=== PATIENT | male | born 1930 | race Two or more races ===

== ENCOUNTER 2018-11-03 11:14 | Inpatient (IN) | payer MEDICARE, OTHER ==
[~2018-11-03 11:14] MED LIST: CEFAZOLIN 1 GM INJ
[2018-11-03] MEDS ORDERED: PROPOFOL 200 MG INJ (12:19)
[2018-11-03] MEDS: LEVALBUTEROL (NEB) 0.63 MG/3 ML AMP HHN (13:39)
[2018-11-03 14:47] LABS: ANION GAP 8 (5-13); BLOOD UREA NITROGEN 32 mg/dl (7-20); CALCIUM 9.6 mg/dl (8.4-10.2); CARBON DIOXIDE 26 mmol/L (21-31); CHLORIDE 113 mmol/L (97-110); CREATININE 0.56 mg/dl (0.61-1.24); GLUCOSE 93 mg/dl (70-220); INR 1.04; POTASSIUM 3.5 mmol/L (3.5-5.1); PROTIME 13.7 Sec (11.9-14.9); PT RATIO 1.1; SODIUM 147 mmol/L (135-144)
[2018-11-03 15:11] LABS: ABNORMAL IP MESSAGE 1; HEMATOCRIT 22.3 % (42.0-52.0); MEAN CORPUSCULAR HEMOGLOBIN 26.5 pg (29.0-33.0); MEAN CORPUSCULAR HGB CONC 30.5 g/dl (32.0-37.0); MEAN CORPUSCULAR VOLUME 86.8 fl (82.0-101.0); MEAN PLATELET VOLUME 10.5 fl (7.4-10.4); NUCLEATED RED BLOOD CELLS% 11.3 /100WBC (0.0-0.0); PLATELET COUNT 75 10^3/UL (140-415); POSITIVE DIFF @See below; RED BLOOD COUNT 2.57 10^6/ul (4.70-6.10); RED CELL DISTRIBUTION WIDTH 18.3 % (11.5-14.5)
[2018-11-03 15:11] LABS: WHITE BLOOD COUNT 2.6 10^3/ul (4.8-10.8)
[2018-11-03 15:31] LABS: HEMOGLOBIN 6.8 g/dl (14.0-18.0)
[2018-11-03 15:32] LABS: ADD MAN DIFF? YES
[2018-11-03 16:06] LABS: ANISOCYTOSIS 2+ (0-0); BAND NEUTROPHILS #M 0.1 10^3/ul (0.0-0.6); BAND NEUTROPHILS % (M) 6 % (0-4); ERYTHROBLAST% (NRBC) (M) 6 % (0-0); HYPOCHROMASIA 3+ (0-0); LYMPHOCYTES #M 0.9 10^3/ul (0.8-2.9); LYMPHOCYTES % (M) 35 % (15-51); METAMYELOCYTES %M 2 % (0-0); MICROCYTOSIS 2+ (0-0); MONOCYTE #M 0.1 10^3/ul (0.3-0.9); MONOCYTES % (M) 6 % (0-11); MYELOCYTES % (M) 1 % (0-0); PLATELET ESTIMATE DECREASED; POIKILOCYTOSIS 1+ (0-0); POLYCHROMASIA 2+ (0-0); PROMYELOCYTES #M 0.1 10^3/ul (0-0); PROMYELOCYTES % (M) 6 % (0-0); SEG NEUT #M 1.1 10^3/ul (1.6-7.5); SEGMENTED NEUTROPHILS (M) % 44 % (39-77); SMUDGE%M 8 % (0-0)
[2018-11-03] MEDS ORDERED: PENDING SANTYL ORDER FOR WOUND CARE XX (20:00)
[2018-11-03] MEDS: DEXTROSE 5%-0.45% NACL 1,000 ML IV (20:17)
[2018-11-03] MEDS: ASCORBIC ACID 500 MG TAB GTB (22:04)
[2018-11-03] MEDS: METHENAMINE 1 GM TAB PO (22:04)
[2018-11-03] MEDS: CYANOCOBALAMIN 1000 MCG INJ IM (22:05)
[2018-11-04 08:25] LABS: WHITE BLOOD COUNT 3.1 10^3/ul (4.8-10.8)
[2018-11-04 08:25] LABS: ABNORMAL IP MESSAGE 1; HEMOGLOBIN 9.1 g/dl (14.0-18.0); MEAN CORPUSCULAR HEMOGLOBIN 28.2 pg (29.0-33.0); MEAN CORPUSCULAR HGB CONC 31.4 g/dl (32.0-37.0); MEAN CORPUSCULAR VOLUME 89.8 fl (82.0-101.0); NUCLEATED RED BLOOD CELLS% 13.6 /100WBC (0.0-0.0); PLATELET COUNT 81 10^3/UL (140-415); POSITIVE DIFF @See below; RED BLOOD COUNT 3.23 10^6/ul (4.70-6.10); RED CELL DISTRIBUTION WIDTH 17.2 % (11.5-14.5)
[2018-11-04 08:31] LABS: CREATINE KINASE 248 IU/L (23-200)
[2018-11-04 08:33] LABS: ADD MAN DIFF? YES
[2018-11-04 08:34] LABS: ALANINE AMINOTRANSFERASE 16 IU/L (13-69); ALBUMIN 2.9 g/dl (3.3-4.9); ALKALINE PHOSPHATASE 248 IU/L (42-121); ANION GAP 6 (5-13); ASPARTATE AMINO TRANSFERASE 54 IU/L (15-46); BILIRUBIN,INDIRECT 0.6 mg/dl (0-1.1); BILIRUBIN,TOTAL 0.6 mg/dl (0.2-1.3); BLOOD UREA NITROGEN 28 mg/dl (7-20); CALCIUM 9.6 mg/dl (8.4-10.2); CARBON DIOXIDE 30 mmol/L (21-31); CHLORIDE 113 mmol/L (97-110); CREATININE 0.54 mg/dl (0.61-1.24); GLUCOSE 128 mg/dl (70-220); POTASSIUM 3.8 mmol/L (3.5-5.1); SODIUM 149 mmol/L (135-144); TOTAL PROTEIN 5.8 g/dl (6.1-8.1)
[2018-11-04 08:39] LABS: CHOL/HDL RATIO 4.6 RATIO; HDL CHOLESTEROL 32 mg/dl (31-75); LDL CHOLESTEROL,CALCULATED 75 mg/dl; TRIGLYCERIDES 205 mg/dl (0-149)
[2018-11-04 08:39] LABS: CHOLESTEROL 148 mg/dl (100-200)
[2018-11-04 08:43] LABS: CK INDEX 1.5; TROPONIN-I 0.016 ng/ml (0.000-0.120)
[2018-11-04 08:49] LABS: CK-MB 3.61 ng/ml (0.0-2.4)
[2018-11-04] MEDS ORDERED: BICALUTAMIDE 50 MG TAB PO (09:00)
[2018-11-04] MEDS: ZINC SULFATE 220 MG CAP PO (09:22)
[2018-11-04] MEDS: ASCORBIC ACID 500 MG TAB GTB ×2 (09:22→20:52)
[2018-11-04] MEDS: PRENATAL VITAMIN PO (09:22)
[2018-11-04] MEDS: DUTASTERIDE 0.5 MG CAP PO (09:22)
[2018-11-04] MEDS: METHENAMINE 1 GM TAB PO ×2 (09:22→20:51)
[2018-11-04 09:40] LABS: PROSTATE SPECIFIC ANTIGEN > 1000.0 ng/ml (0.0-4.0)
[2018-11-04 13:34] LABS: CREATINE KINASE 100 IU/L (23-200)
[2018-11-04 13:47] LABS: CK INDEX 2.5; TROPONIN-I < 0.012 ng/ml (0.000-0.120)
[2018-11-04 13:53] LABS: CK-MB 2.45 ng/ml (0.0-2.4)
[2018-11-04] MEDS: ETOMIDATE 20 MG INJ (14:04)
[2018-11-04] MEDS: LIDOCAINE 2% (SDV) 5 ML INJ (14:04)
[2018-11-04] MEDS: PROPOFOL 40 ML (14:05)
[2018-11-04] MEDS: DEXTROSE 5%-0.45% NACL 1,000 ML IV ×2 (14:30→23:49)
[2018-11-04] MEDS: LIDOCAINE 1% (MPF) 5 ML VIAL (17:32)
[2018-11-04 18:24] LABS: CREATINE KINASE 107 IU/L (23-200)
[2018-11-04 18:35] LABS: CK INDEX 2.3; TROPONIN-I < 0.012 ng/ml (0.000-0.120)
[2018-11-04 18:37] LABS: CK-MB 2.41 ng/ml (0.0-2.4)
[2018-11-04 20:52] LABS: FLUID GLUCOSE 127 mg/dl; FLUID TOTAL PROTEIN 3.2 g/dl; FLUID TYPE THORACENTESIS FLUID
[2018-11-04] MEDS: METOPROLOL 25 MG TAB PO (20:52)
[2018-11-04 20:53] LABS: FLUID LD 499 U/L; FLUID TYPE THORACENTESIS FLUID
[2018-11-04 22:19] LABS: FLD MN% 93.2 %; FLD PMN% 6.8 %; FLD RBC 2000 /uL; FLD WBC 89 /cmm
[2018-11-04 22:50] LABS: FLD TYPE THORACENTHESIS
[2018-11-04 22:50] LABS: FLD CLARITY HAZY; FLD COLOR AMBER
[2018-11-05 08:29] LABS: ADD MAN DIFF? NO
[2018-11-05 08:40] LABS: WHITE BLOOD COUNT 2.9 10^3/ul (4.8-10.8)
[2018-11-05 08:41] LABS: ABNORMAL IP MESSAGE 1; EOSINOPHILS % 0.3 % (0.0-7.0); HEMATOCRIT 26.3 % (42.0-52.0); HEMOGLOBIN 8.5 g/dl (14.0-18.0); LYMPHOCYTES # 0.9 10^3/ul (0.8-2.9); LYMPHOCYTES % 29.8 % (15.0-51.0); MEAN CORPUSCULAR HEMOGLOBIN 28.3 pg (29.0-33.0); MEAN CORPUSCULAR HGB CONC 32.3 g/dl (32.0-37.0); MEAN CORPUSCULAR VOLUME 87.7 fl (82.0-101.0); MEAN PLATELET VOLUME 10.9 fl (7.4-10.4); MONOCYTE # 0.2 10^3/ul (0.3-0.9); MONOCYTES % 8.2 % (0.0-11.0); NEUTROPHIL # 1.6 10^3/ul (1.6-7.5); NEUTROPHILS % 53.2 % (39.0-77.0); NUCLEATED RED BLOOD CELLS # 0.3 10^3/ul (0.0-0.0); NUCLEATED RED BLOOD CELLS% 11.6 /100WBC (0.0-0.0); PLATELET COUNT 70 10^3/UL (140-415); POSITIVE DIFF @See below; RED CELL DISTRIBUTION WIDTH 17.4 % (11.5-14.5)
[2018-11-05 08:57] LABS: ANION GAP 4 (5-13); BLOOD UREA NITROGEN 26 mg/dl (7-20); CALCIUM 8.9 mg/dl (8.4-10.2); CARBON DIOXIDE 28 mmol/L (21-31); CHLORIDE 112 mmol/L (97-110); CREATININE 0.47 mg/dl (0.61-1.24); GLUCOSE 128 mg/dl (70-220); POTASSIUM 3.4 mmol/L (3.5-5.1); SODIUM 144 mmol/L (135-144)
[2018-11-05] MEDS: METOPROLOL 25 MG TAB PO ×2 (09:30→20:20)
[2018-11-05] MEDS: ASCORBIC ACID 500 MG TAB GTB ×2 (09:30→20:20)
[2018-11-05] MEDS: DUTASTERIDE 0.5 MG CAP PO (09:30)
[2018-11-05] MEDS: PRENATAL VITAMIN PO (09:30)
[2018-11-05] MEDS: ZINC SULFATE 220 MG CAP PO (09:30)
[2018-11-05] MEDS: METHENAMINE 1 GM TAB PO ×2 (09:30→20:20)
[2018-11-05 10:46] LABS: ANISOCYTOSIS 3+ (0-0); BAND NEUTROPHILS #M 0.2 10^3/ul (0.0-0.6); BAND NEUTROPHILS % (M) 9 % (0-4); ERYTHROBLAST% (NRBC) (M) 14 % (0-0); LYMPHOCYTES #M 1.1 10^3/ul (0.8-2.9); LYMPHOCYTES % (M) 41 % (15-51); MICROCYTOSIS 3+ (0-0); MONOCYTE #M 0.1 10^3/ul (0.3-0.9); MONOCYTES % (M) 6 % (0-11); PLATELET ESTIMATE DECREASED; POIKILOCYTOSIS 3+ (0-0); POLYCHROMASIA 3+ (0-0); PROMYELOCYTES % (M) 1 % (0-0); SEG NEUT #M 1.3 10^3/ul (1.6-7.5); SEGMENTED NEUTROPHILS (M) % 43 % (39-77); SMUDGE%M 4 % (0-0); TOXIC GRANULATION 1+ (0-0)
[2018-11-05] MEDS: POTASSIUM CHLORIDE (SR) 20 MEQ TAB PO (17:46)
[2018-11-05] MEDS: FISH OIL 1,000 MG CAP PO ×2 (17:46→20:20)
[2018-11-05] MEDS: DEXTROSE 5%-0.45% NACL 1,000 ML IV (20:16)
[2018-11-06 06:46] LABS: ABNORMAL IP MESSAGE 1; HEMATOCRIT 24.3 % (42.0-52.0); HEMOGLOBIN 7.8 g/dl (14.0-18.0); MEAN CORPUSCULAR HEMOGLOBIN 28.2 pg (29.0-33.0); MEAN CORPUSCULAR HGB CONC 32.1 g/dl (32.0-37.0); MEAN CORPUSCULAR VOLUME 87.7 fl (82.0-101.0); NUCLEATED RED BLOOD CELLS% 8.8 /100WBC (0.0-0.0); PLATELET COUNT 63 10^3/UL (140-415); POSITIVE DIFF @See below; RED BLOOD COUNT 2.77 10^6/ul (4.70-6.10); RED CELL DISTRIBUTION WIDTH 17.6 % (11.5-14.5)
[2018-11-06 06:46] LABS: WHITE BLOOD COUNT 2.6 10^3/ul (4.8-10.8)
[2018-11-06 06:56] LABS: ADD MAN DIFF? YES
[2018-11-06 07:20] LABS: ANION GAP 2 (5-13); BLOOD UREA NITROGEN 27 mg/dl (7-20); CALCIUM 8.8 mg/dl (8.4-10.2); CARBON DIOXIDE 29 mmol/L (21-31); CHLORIDE 110 mmol/L (97-110); CREATININE 0.46 mg/dl (0.61-1.24); GLUCOSE 135 mg/dl (70-220); POTASSIUM 3.8 mmol/L (3.5-5.1); SODIUM 141 mmol/L (135-144)
[2018-11-06 07:20] LABS: PHOSPHORUS 1.1 mg/dl (2.5-4.9)
[2018-11-06] MEDS: ZINC SULFATE 220 MG CAP PO (09:45)
[2018-11-06] MEDS: PRENATAL VITAMIN PO (09:45)
[2018-11-06] MEDS: METHENAMINE 1 GM TAB PO ×2 (09:46→21:12)
[2018-11-06] MEDS: ASCORBIC ACID 500 MG TAB GTB ×2 (09:46→21:11)
[2018-11-06] MEDS: DUTASTERIDE 0.5 MG CAP PO (09:46)
[2018-11-06] MEDS: METOPROLOL 25 MG TAB PO ×2 (09:46→21:00)
[2018-11-06] MEDS: FISH OIL 1,000 MG CAP PO ×2 (09:55→21:11)
[2018-11-06 10:34] LABS: ANISOCYTOSIS 2+ (0-0); BAND NEUTROPHILS #M 0.1 10^3/ul (0.0-0.6); BAND NEUTROPHILS % (M) 6 % (0-4); ERYTHROBLAST% (NRBC) (M) 6 % (0-0); GIANT THROMBO% (M) 2 % (0-0); LYMPHOCYTES #M 0.8 10^3/ul (0.8-2.9); LYMPHOCYTES % (M) 33 % (15-51); METAMYELOCYTES %M 1 % (0-0); MICROCYTOSIS 1+ (0-0); MONOCYTES % (M) 2 % (0-11); MYELOCYTES #M 0.1 10^3/ul (0.0-0.0); MYELOCYTES % (M) 5 % (0-0); PLATELET ESTIMATE DECREASED; POIKILOCYTOSIS 2+ (0-0); POLYCHROMASIA 3+ (0-0); PROMYELOCYTES % (M) 2 % (0-0); REACTIVE LYMPHOCYTES #M 0.1 10^3/ul (0.0-0.0); REACTIVE LYMPHOCYTES% (M) 4 % (0-0); SEG NEUT #M 1.2 10^3/ul (1.6-7.5); SEGMENTED NEUTROPHILS (M) % 47 % (39-77); SMUDGE%M 4 % (0-0)
[2018-11-06] MEDS: SOD CHLORIDE 0.9% 500 ML IV (10:37)
[2018-11-06 10:52] LABS: AADO2 Arterial 600.1 mmHg (7.0-24.0); Allen Test ACCEPTAB; Arterial Base Excess 0.2 mmol/L (-3.0-3); Arterial Blood Gas Oxygen Sat 78.3 mmHG (95.0-100.0); Arterial COHb 0.2 % (0.0-3.0); Arterial Fraction of Oxyhgb 77.8 % (93.0-99.0); Arterial HCO3 28.3 mmol/L (22.0-26.0); Arterial MetHb 0.4 % (0.0-1.5); Arterial pCO2 65.5 mmhg (35-45); Blood Gas IEPAP 20/8; Blood Gas PS 12; MODE MASK - BIPAP; Site Left Radial
[2018-11-06] MEDS ORDERED: NORepinephrine 8MG/250 ML (PMX 250 ML (10:59)
[2018-11-06] MEDS: NORepinephrine 8MG/250 ML (PMX 250 ML IV (11:59)
[2018-11-06] MEDS ORDERED: PIPER-TAZO 3.375 GM IV (PMX) 100 ML IVPB (12:00)
[2018-11-06] MEDS: LACTATED RINGER'S 500 ML IV ×3 (12:00→15:12)
[2018-11-06 12:18] LABS: ALANINE AMINOTRANSFERASE 14 IU/L (13-69); ALBUMIN/GLOBULIN RATIO 0.93; ALKALINE PHOSPHATASE 272 IU/L (42-121); ANION GAP 4 (5-13); ASPARTATE AMINO TRANSFERASE 57 IU/L (15-46); BILIRUBIN,INDIRECT 0.7 mg/dl (0-1.1); BILIRUBIN,TOTAL 0.7 mg/dl (0.2-1.3); BLOOD UREA NITROGEN 29 mg/dl (7-20); CALCIUM 9.3 mg/dl (8.4-10.2); CARBON DIOXIDE 27 mmol/L (21-31); CHLORIDE 110 mmol/L (97-110); CREATININE 0.48 mg/dl (0.61-1.24); GLUCOSE 146 mg/dl (70-220); POTASSIUM 4.3 mmol/L (3.5-5.1); SODIUM 141 mmol/L (135-144); TOTAL PROTEIN 6.2 g/dl (6.1-8.1)
[2018-11-06 12:29] LABS: TROPONIN-I < 0.012 ng/ml (0.000-0.120)
[2018-11-06] MEDS ORDERED: ALBUTEROL/IPRATROPIUM (NEB) 3 ML AMP HHN (13:00)
[2018-11-06] MEDS: PHENYLephrine 20MG IN 250 ML 250 ML IV (13:55)
[2018-11-06] MEDS: SOD CHLORIDE 0.9% 250 ML IV* (14:00)
[2018-11-06] MEDS: VANCOMYCIN 1 GM (PMX) 250 ML IVPB (14:00)
[2018-11-06 14:25] LABS: AADO2 Arterial 347.9 mmHg (7.0-24.0); Arterial Base Excess -2.2 mmol/L (-3.0-3); Arterial Blood Gas Oxygen Sat 78.9 mmHG (95.0-100.0); Arterial COHb 0.6 % (0.0-3.0); Arterial Fraction of Oxyhgb 78.2 % (93.0-99.0); Arterial MetHb 0.3 % (0.0-1.5); Arterial pCO2 35.7 mmhg (35-45); MODE VENT - AC; Site Right Radial
[2018-11-06] MEDS ORDERED: VANCOMYCIN IV PER PHARMACY XX (14:30)
[2018-11-06 15:09] LABS: ABNORMAL IP MESSAGE 1; HEMATOCRIT 30.9 % (42.0-52.0); HEMOGLOBIN 9.7 g/dl (14.0-18.0); MEAN CORPUSCULAR HEMOGLOBIN 27.4 pg (29.0-33.0); MEAN CORPUSCULAR HGB CONC 31.4 g/dl (32.0-37.0); MEAN CORPUSCULAR VOLUME 87.3 fl (82.0-101.0); NUCLEATED RED BLOOD CELLS% 34.1 /100WBC (0.0-0.0); POSITIVE DIFF @See below; RED BLOOD COUNT 3.54 10^6/ul (4.70-6.10); RED CELL DISTRIBUTION WIDTH 17.9 % (11.5-14.5)
[2018-11-06 15:09] LABS: WHITE BLOOD COUNT 2.7 10^3/ul (4.8-10.8)
[2018-11-06] MEDS: LACTATED RINGER'S 1,000 ML IV (15:09)
[2018-11-06 15:10] LABS: RETICULOCYTE RBC 3.47
[2018-11-06 15:10] LABS: RETICULOCYTE COUNT # 0.076 X10^6 (0.020-0.110); RETICULOCYTE COUNT % 2.2 % (0.5-1.5)
[2018-11-06] MEDS: PIPER-TAZO 3.375 GM IV (PMX) 100 ML IVPB ×2 (15:10→22:05)
[2018-11-06 15:11] LABS: PLATELET COUNT 118 10^3/UL (140-415)
[2018-11-06 15:18] LABS: ADD MAN DIFF? YES; PLATELET COUNT 118 10^3/UL (140-415)
[2018-11-06 15:32] LABS: INR 1.12; PROTIME 14.5 Sec (11.9-14.9); PT RATIO 1.1
[2018-11-06 15:33] LABS: PARTIAL THROMBOPLASTIN TIME 38.8 Sec (23.0-35.0)
[2018-11-06 15:34] LABS: THROMBIN TIME 16.6 SEC (13.8-19.1)
[2018-11-06 15:36] LABS: IRON 43 ug/dl (35-150)
[2018-11-06 15:38] LABS: LACTIC ACID 2.2 mmol/L (0.5-2.0)
[2018-11-06 15:41] LABS: % IRON SATURATION 33 % SAT (22-52); TOTAL IRON BINDING CAPACITY 132 ug/dl (241-421)
[2018-11-06 15:44] LABS: TROPONIN-I 0.017 ng/ml (0.000-0.120)
[2018-11-06 15:50] LABS: ADD UMIC YES; UR ASCORBIC ACID 40 mg/dL (NEGATIVE); UR BACTERIA MODERATE /HPF (NONE SEEN); UR BILIRUBIN (Dip) NEGATIVE (NEGATIVE); UR BLOOD (Dip) 3+ mg/dL (NEGATIVE); UR CLARITY CLOUDY (CLEAR); UR COLOR AMBER (YELLOW); UR GLUCOSE (Dip) 1+ mg/dL (NEGATIVE); UR KETONES (Dip) NEGATIVE (NEGATIVE); UR LEUKOCYTE ESTERASE (Dip) 2+ Leu/ul (NEGATIVE); UR MUCUS MODERATE /HPF (NONE SEEN); UR NITRITE (Dip) NEGATIVE (NEGATIVE); UR RBC > 182 /HPF (0-5); UR SPECIFIC GRAVITY (Dip) 1.017 (1.003-1.030); UR SQUAMOUS EPITHELIAL CELL FEW /HPF (FEW); UR TOTAL PROTEIN (Dip) 2+ mg/dl (NEGATIVE); UR TRANSITIONAL EPI CELL FEW /HPF (NONE SEEN); UR UROBILINOGEN (Dip) NEGATIVE (NEGATIVE); UR WBC > 182 /HPF (0-5)
[2018-11-06] MEDS: SODIUM PHOSPHATE 20 MEQ in SOD CHLORIDE 0.9% 250 ML IVPB (16:08)
[2018-11-06] MEDS: VANCOMYCIN 1 GM 250 ML IVPB (16:10)
[2018-11-06 16:11] LABS: D-DIMER > 10000.00 ng/ml (<460); FIBRIN SPLIT PRODUCT >10 and <40 ug/ml (<10)
[2018-11-06 16:38] LABS: ANISOCYTOSIS 1+ (0-0); BAND NEUTROPHILS #M 0.4 10^3/ul (0.0-0.6); BAND NEUTROPHILS % (M) 17 % (0-4); BASOPHIL #M 0.2 10^3/ul (0.0-0.0); BASOPHILS % (M) 11 % (0-2); BURR CELLS 1+ (0-0); ERYTHROBLAST% (NRBC) (M) 35 % (0-0); GIANT THROMBO% (M) 2 % (0-0); LYMPHOCYTES #M 0.9 10^3/ul (0.8-2.9); LYMPHOCYTES % (M) 34 % (15-51); MICROCYTOSIS 1+ (0-0); MYELOCYTES #M 0.2 10^3/ul (0.0-0.0); MYELOCYTES % (M) 9 % (0-0); OVALOCYTES 1+ (0-0); PLATELET ESTIMATE DECREASED; POIKILOCYTOSIS 2+ (0-0); POLYCHROMASIA 1+ (0-0); PROMYELOCYTES #M 0.1 10^3/ul (0-0); PROMYELOCYTES % (M) 4 % (0-0); REACTIVE LYMPHOCYTES% (M) 1 % (0-0); SEG NEUT #M 0.7 10^3/ul (1.6-7.5); SEGMENTED NEUTROPHILS (M) % 24 % (39-77); SMUDGE%M 9 % (0-0)
[2018-11-06 16:38] LABS: IMMEDIATE SPIN CROSSMATCH 1 3
[2018-11-06] MEDS: IPRATROPIUM (HFA) 12.9 GM INHALER INH ×2 (17:00→21:30)
[2018-11-06] MEDS: PHENYLephrine 40 MG in DEXTROSE 5% 246 ML IV (17:14)
[2018-11-06] MEDS: ALBUTEROL HFA 8 GM INHALER INH ×2 (17:27→21:30)
[2018-11-06 17:51] LABS: FOLATE > 20.0 ng/ml (2.8-20.0)
[2018-11-06] MEDS ORDERED: GLUCAGON 1 MG INJ IM (21:30)
[2018-11-06] MEDS ORDERED: GLUCOSE GEL 15 GRAM TUBE BUCCAL (21:30)
[2018-11-06] MEDS ORDERED: DEXTROSE 50% 50 ML SYRINGE IV ×2 (21:30)
[2018-11-06] MEDS ORDERED: GLUCOSE GEL 15 GRAM TUBE PO ×2 (21:30)
[2018-11-06] MEDS: INSULIN ASPART [NOVOLOG] 3 ML PEN SC (22:00)
[2018-11-07] MEDS: PHENYLephrine 40 MG in DEXTROSE 5% 246 ML IV ×3 (00:41→17:13)
[2018-11-07] MEDS: ALBUTEROL HFA 8 GM INHALER INH ×6 (01:38→20:21)
[2018-11-07] MEDS: IPRATROPIUM (HFA) 12.9 GM INHALER INH ×6 (01:38→20:21)
[2018-11-07] MEDS: INSULIN ASPART [NOVOLOG] 3 ML PEN SC ×6 (01:44→21:00)
[2018-11-07 04:47] LABS: AADO2 Arterial 212.2 mmHg (7.0-24.0); Allen Test ACCEPTAB; Arterial Base Excess -3.4 mmol/L (-3.0-3); Arterial Blood Gas Oxygen Sat 98.3 mmHG (95.0-100.0); Arterial COHb 0.7 % (0.0-3.0); Arterial Fraction of Oxyhgb 97.1 % (93.0-99.0); Arterial HCO3 19.1 mmol/L (22.0-26.0); Arterial MetHb 0.5 % (0.0-1.5); Arterial pCO2 28.4 mmhg (35-45); MODE VENT - AC; Site Right Radial
[2018-11-07 04:55] LABS: ABNORMAL IP MESSAGE 1; HEMATOCRIT 37.9 % (42.0-52.0); HEMOGLOBIN 12.5 g/dl (14.0-18.0); NUCLEATED RED BLOOD CELLS% 16.1 /100WBC (0.0-0.0); PLATELET COUNT 80 10^3/UL (140-415); POSITIVE DIFF @See below; RED BLOOD COUNT 4.46 10^6/ul (4.70-6.10)
[2018-11-07 05:08] LABS: ADD MAN DIFF? YES
[2018-11-07 05:11] LABS: LACTIC ACID 2.1 mmol/L (0.5-2.0)
[2018-11-07 05:22] LABS: PHOSPHORUS 2.7 mg/dl (2.5-4.9)
[2018-11-07 05:23] LABS: ANION GAP 6 (5-13); BLOOD UREA NITROGEN 35 mg/dl (7-20); CALCIUM 8.5 mg/dl (8.4-10.2); CARBON DIOXIDE 22 mmol/L (21-31); CHLORIDE 111 mmol/L (97-110); CREATININE 0.49 mg/dl (0.61-1.24); GLUCOSE 160 mg/dl (70-220); POTASSIUM 4.7 mmol/L (3.5-5.1); SODIUM 139 mmol/L (135-144)
[2018-11-07] MEDS: PIPER-TAZO 3.375 GM IV (PMX) 100 ML IVPB ×3 (05:37→21:34)
[2018-11-07] MEDS: LACTATED RINGER'S 1,000 ML IV ×2 (05:38→18:17)
[2018-11-07 07:35] LABS: ANISOCYTOSIS 1+ (0-0); BAND NEUTROPHILS #M 0.3 10^3/ul (0.0-0.6); BAND NEUTROPHILS % (M) 12 % (0-4); LYMPHOCYTES #M 0.3 10^3/ul (0.8-2.9); LYMPHOCYTES % (M) 10 % (15-51); MICROCYTOSIS 1+ (0-0); MONOCYTE #M 0.1 10^3/ul (0.3-0.9); MONOCYTES % (M) 4 % (0-11); MYELOCYTES % (M) 1 % (0-0); PLATELET ESTIMATE DECREASED; POLYCHROMASIA 3+ (0-0); SEG NEUT #M 2.2 10^3/ul (1.6-7.5); SEGMENTED NEUTROPHILS (M) % 73 % (39-77); SMUDGE%M 3 % (0-0); TOXIC GRANULATION 3+ (0-0)
[2018-11-07] MEDS: SOD CHLORIDE 0.9% 500 ML IV (07:43)
[2018-11-07] MEDS: METOPROLOL 25 MG TAB PO ×2 (08:21→21:00)
[2018-11-07] MEDS: FISH OIL 1,000 MG CAP PO ×2 (09:49→21:00)
[2018-11-07] MEDS: ASCORBIC ACID 500 MG TAB GTB ×2 (09:49→21:30)
[2018-11-07] MEDS: FINASTERIDE 5 MG TAB GTB (13:31)
[2018-11-07] MEDS: ACETAMINOPHEN 500 MG TAB PO (13:33)
[2018-11-07] MEDS: VANCOMYCIN 750 MG (PMX) 250 ML IVPB (15:00)
[2018-11-07] MEDS ORDERED: ETOMIDATE 20 MG INJ (17:00)
[2018-11-07 18:03] LABS: OCCULT BLOOD STOOL NEGATIVE (NEGATIVE)
[2018-11-07] MEDS: DIGOXIN 500 MCG INJ IV (18:07)
[2018-11-07] MEDS: METHENAMINE 1 GM TAB GTB (21:30)
[2018-11-08] MEDS: INSULIN ASPART [NOVOLOG] 3 ML PEN SC ×6 (01:00→21:00)
[2018-11-08] MEDS: IPRATROPIUM (HFA) 12.9 GM INHALER INH ×6 (01:39→21:30)
[2018-11-08] MEDS: ALBUTEROL HFA 8 GM INHALER INH ×6 (01:39→21:30)
[2018-11-08] MEDS: PHENYLephrine 40 MG in DEXTROSE 5% 246 ML IV ×2 (01:52→13:01)
[2018-11-08 05:54] LABS: WHITE BLOOD COUNT 4.4 10^3/ul (4.8-10.8)
[2018-11-08 05:55] LABS: ABNORMAL IP MESSAGE 1; HEMATOCRIT 31.6 % (42.0-52.0); HEMOGLOBIN 10.5 g/dl (14.0-18.0); MEAN CORPUSCULAR HEMOGLOBIN 27.8 pg (29.0-33.0); MEAN CORPUSCULAR HGB CONC 33.2 g/dl (32.0-37.0); MEAN CORPUSCULAR VOLUME 83.6 fl (82.0-101.0); NUCLEATED RED BLOOD CELLS% 8.2 /100WBC (0.0-0.0); PLATELET COUNT 72 10^3/UL (140-415); POSITIVE DIFF @See below; RED BLOOD COUNT 3.78 10^6/ul (4.70-6.10); RED CELL DISTRIBUTION WIDTH 17.6 % (11.5-14.5)
[2018-11-08] MEDS: PIPER-TAZO 3.375 GM IV (PMX) 100 ML IVPB ×2 (05:55→13:20)
[2018-11-08 06:09] LABS: ADD MAN DIFF? YES
[2018-11-08 06:53] LABS: ALANINE AMINOTRANSFERASE 21 IU/L (13-69); ALBUMIN 2.2 g/dl (3.3-4.9); ALBUMIN/GLOBULIN RATIO 0.81; ALKALINE PHOSPHATASE 319 IU/L (42-121); ANION GAP 7 (5-13); ASPARTATE AMINO TRANSFERASE 295 IU/L (15-46); BILIRUBIN,INDIRECT 0.6 mg/dl (0-1.1); BILIRUBIN,TOTAL 0.6 mg/dl (0.2-1.3); BLOOD UREA NITROGEN 38 mg/dl (7-20); CALCIUM 8.2 mg/dl (8.4-10.2); CARBON DIOXIDE 22 mmol/L (21-31); CHLORIDE 109 mmol/L (97-110); CREATININE 0.54 mg/dl (0.61-1.24); GLUCOSE 114 mg/dl (70-220); POTASSIUM 3.6 mmol/L (3.5-5.1); SODIUM 138 mmol/L (135-144); TOTAL PROTEIN 4.9 g/dl (6.1-8.1)
[2018-11-08 07:23] LABS: AADO2 Arterial 75.2 mmHg (7.0-24.0); Allen Test ACCEPTAB; Arterial Base Excess -2.3 mmol/L (-3.0-3); Arterial Blood Gas Oxygen Sat 97.6 mmHG (95.0-100.0); Arterial COHb 0.1 % (0.0-3.0); Arterial Fraction of Oxyhgb 97.1 % (93.0-99.0); Arterial HCO3 20.5 mmol/L (22.0-26.0); Arterial MetHb 0.4 % (0.0-1.5); Arterial pCO2 29.3 mmhg (35-45); MODE VENT - AC; Site Right Radial
[2018-11-08] MEDS: FINASTERIDE 5 MG TAB GTB (08:09)
[2018-11-08] MEDS: FISH OIL 1,000 MG CAP PO ×2 (08:09→20:58)
[2018-11-08] MEDS: ASCORBIC ACID 500 MG TAB GTB ×2 (08:09→21:09)
[2018-11-08] MEDS: METHENAMINE 1 GM TAB GTB ×2 (08:09→21:09)
[2018-11-08] MEDS: ZINC SULFATE 220 MG CAP GTB (08:09)
[2018-11-08] MEDS: METOPROLOL 25 MG TAB PO ×2 (08:10→21:00)
[2018-11-08] MEDS: PRENATAL VITAMIN GTB (08:10)
[2018-11-08 10:40] LABS: ANISOCYTOSIS 1+ (0-0); BAND NEUTROPHILS #M 1.7 10^3/ul (0.0-0.6); BAND NEUTROPHILS % (M) 40 % (0-4); BURR CELLS 3+ (0-0); ERYTHROBLAST% (NRBC) (M) 18 % (0-0); LYMPHOCYTES #M 1.1 10^3/ul (0.8-2.9); LYMPHOCYTES % (M) 27 % (15-51); METAMYELOCYTES %M 1 % (0-0); MICROCYTOSIS 1+ (0-0); MONOCYTE #M 0.3 10^3/ul (0.3-0.9); MONOCYTES % (M) 7 % (0-11); MYELOCYTES #M 0.1 10^3/ul (0.0-0.0); MYELOCYTES % (M) 4 % (0-0); OVALOCYTES 1+ (0-0); PLATELET ESTIMATE DECREASED; POIKILOCYTOSIS 3+ (0-0); POLYCHROMASIA 3+ (0-0); PROMYELOCYTES % (M) 1 % (0-0); REACTIVE LYMPHOCYTES% (M) 1 % (0-0); SEG NEUT #M 0.9 10^3/ul (1.6-7.5); SEGMENTED NEUTROPHILS (M) % 19 % (39-77); SMUDGE%M 3 % (0-0); TOXIC GRANULATION 2+ (0-0)
[2018-11-08 11:55] LABS: AADO2 Arterial 71.3 mmHg (7.0-24.0); Allen Test ACCEPTAB; Arterial Base Excess -2.7 mmol/L (-3.0-3); Arterial Blood Gas Oxygen Sat 94.7 mmHG (95.0-100.0); Arterial COHb 0.6 % (0.0-3.0); Arterial Fraction of Oxyhgb 93.8 % (93.0-99.0); Arterial HCO3 24.2 mmol/L (22.0-26.0); Arterial MetHb 0.4 % (0.0-1.5); Arterial pCO2 50.5 mmhg (35-45); Blood Gas PS 10; MODE VENT - CPAP; Site Right Radial
[2018-11-08] MEDS ORDERED: morphine 2 MG INJ IV (12:00)
[2018-11-08 12:24] LABS: PLATELET COUNT 106 10^3/UL (140-415)
[2018-11-08 12:47] LABS: INR 1.38; PROTIME 17.1 Sec (11.9-14.9); PT RATIO 1.3
[2018-11-08 12:49] LABS: PARTIAL THROMBOPLASTIN TIME 42.2 Sec (23.0-35.0)
[2018-11-08 12:51] LABS: THROMBIN TIME 17.1 SEC (13.8-19.1)
[2018-11-08] MEDS: LACTATED RINGER'S 1,000 ML IV (12:57)
[2018-11-08] MEDS: BALSAM PERU/CASTOR OIL 60 GM TUBE TOP ×2 (13:00→21:12)
[2018-11-08 13:15] LABS: D-DIMER 8503.11 ng/ml (<460)
[2018-11-08] MEDS: SOD CHLORIDE 0.9% 500 ML IV (13:20)
[2018-11-08 13:27] LABS: LACTATE DEHYDROGENASE 5980 IU/L (313-618)
[2018-11-08 13:41] LABS: FIBRIN SPLIT PRODUCT >10 and <40 ug/ml (<10)
[2018-11-08] MEDS: VANCOMYCIN 750 MG (PMX) 250 ML IVPB (14:19)
[2018-11-08] MEDS: CEFEPIME 1GM/50 ML IVPB (16:22)
[2018-11-08] MEDS: ACETAMINOPHEN 500 MG TAB PO (21:07)
[2018-11-09] MEDS: PHENYLephrine 40 MG in DEXTROSE 5% 246 ML IV (00:09)
[2018-11-09] MEDS: CEFEPIME 1GM/50 ML IVPB ×3 (00:09→20:18)
[2018-11-09] MEDS: INSULIN ASPART [NOVOLOG] 3 ML PEN SC ×6 (00:13→20:21)
[2018-11-09] MEDS: ALBUTEROL HFA 8 GM INHALER INH ×6 (01:18→21:31)
[2018-11-09] MEDS: IPRATROPIUM (HFA) 12.9 GM INHALER INH ×6 (01:18→21:31)
[2018-11-09 05:33] LABS: ABNORMAL IP MESSAGE 1; HEMATOCRIT 30.3 % (42.0-52.0); HEMOGLOBIN 10.1 g/dl (14.0-18.0); MEAN CORPUSCULAR HEMOGLOBIN 28.1 pg (29.0-33.0); MEAN CORPUSCULAR HGB CONC 33.3 g/dl (32.0-37.0); MEAN CORPUSCULAR VOLUME 84.2 fl (82.0-101.0); NUCLEATED RED BLOOD CELLS% 9.6 /100WBC (0.0-0.0); PLATELET COUNT 72 10^3/UL (140-415); POSITIVE DIFF @See below; RED CELL DISTRIBUTION WIDTH 17.5 % (11.5-14.5)
[2018-11-09 05:33] LABS: WHITE BLOOD COUNT 4.4 10^3/ul (4.8-10.8)
[2018-11-09 05:45] LABS: ADD MAN DIFF? YES
[2018-11-09 05:54] LABS: PHOSPHORUS 1.8 mg/dl (2.5-4.9)
[2018-11-09 06:11] LABS: ALANINE AMINOTRANSFERASE 23 IU/L (13-69); ALBUMIN 2.2 g/dl (3.3-4.9); ALBUMIN/GLOBULIN RATIO 0.88; ALKALINE PHOSPHATASE 406 IU/L (42-121); ANION GAP 3 (5-13); ASPARTATE AMINO TRANSFERASE 239 IU/L (15-46); BILIRUBIN,INDIRECT 0.5 mg/dl (0-1.1); BILIRUBIN,TOTAL 0.5 mg/dl (0.2-1.3); BLOOD UREA NITROGEN 39 mg/dl (7-20); CALCIUM 7.9 mg/dl (8.4-10.2); CARBON DIOXIDE 24 mmol/L (21-31); CHLORIDE 109 mmol/L (97-110); GLUCOSE 100 mg/dl (70-220); POTASSIUM 3.7 mmol/L (3.5-5.1); SODIUM 136 mmol/L (135-144); TOTAL PROTEIN 4.7 g/dl (6.1-8.1)
[2018-11-09 07:25] LABS: AADO2 Arterial 120.7 mmHg (7.0-24.0); Allen Test ACCEPTAB; Arterial Base Excess -1.9 mmol/L (-3.0-3); Arterial Blood Gas Oxygen Sat 98.4 mmHG (95.0-100.0); Arterial COHb 0.3 % (0.0-3.0); Arterial Fraction of Oxyhgb 97.7 % (93.0-99.0); Arterial HCO3 20.8 mmol/L (22.0-26.0); Arterial MetHb 0.4 % (0.0-1.5); Arterial pCO2 28.9 mmhg (35-45); MODE VENT - AC; Site Right Radial
[2018-11-09] MEDS: METOPROLOL 25 MG TAB PO ×2 (08:00→20:18)
[2018-11-09 08:36] LABS: ANISOCYTOSIS 2+ (0-0); BAND NEUTROPHILS #M 0.9 10^3/ul (0.0-0.6); BAND NEUTROPHILS % (M) 22 % (0-4); BURR CELLS 3+ (0-0); ERYTHROBLAST% (NRBC) (M) 13 % (0-0); GIANT THROMBO% (M) 2 % (0-0); LYMPHOCYTES #M 1.1 10^3/ul (0.8-2.9); LYMPHOCYTES % (M) 27 % (15-51); METAMYELOCYTES #M 0.2 10^3/ul (0.0-0.0); METAMYELOCYTES %M 6 % (0-0); MONOCYTES % (M) 2 % (0-11); MYELOCYTES % (M) 2 % (0-0); PLATELET ESTIMATE DECREASED; POIKILOCYTOSIS 3+ (0-0); POLYCHROMASIA 2+ (0-0); PROMYELOCYTES #M 0.1 10^3/ul (0-0); PROMYELOCYTES % (M) 3 % (0-0); REACTIVE LYMPHOCYTES% (M) 1 % (0-0); SEG NEUT #M 1.7 10^3/ul (1.6-7.5); SEGMENTED NEUTROPHILS (M) % 37 % (39-77); SMUDGE%M 11 % (0-0)
[2018-11-09] MEDS: METHENAMINE 1 GM TAB GTB ×2 (08:45→20:17)
[2018-11-09] MEDS: LACTATED RINGER'S 1,000 ML IV (08:45)
[2018-11-09] MEDS: FINASTERIDE 5 MG TAB GTB (08:45)
[2018-11-09] MEDS: BALSAM PERU/CASTOR OIL 60 GM TUBE TOP ×2 (08:45→20:22)
[2018-11-09] MEDS: PRENATAL VITAMIN GTB (08:45)
[2018-11-09] MEDS: FISH OIL 1,000 MG CAP PO ×2 (08:45→20:17)
[2018-11-09] MEDS: ZINC SULFATE 220 MG CAP GTB (08:45)
[2018-11-09] MEDS: ASCORBIC ACID 500 MG TAB GTB ×2 (08:45→20:17)
[2018-11-09] MEDS: ACETAMINOPHEN 1000MG/100ML IV 100 ML IVPB (09:18)
[2018-11-09 11:16] LABS: AADO2 Arterial 149.5 mmHg (7.0-24.0); Allen Test V; Arterial Base Excess -2.7 mmol/L (-3.0-3); Arterial Blood Gas Oxygen Sat 96.4 mmHG (95.0-100.0); Arterial COHb 0.3 % (0.0-3.0); Arterial Fraction of Oxyhgb 95.6 % (93.0-99.0); Arterial HCO3 22.1 mmol/L (22.0-26.0); Arterial MetHb 0.5 % (0.0-1.5); Arterial pCO2 38.2 mmhg (35-45); Blood Gas PS 10; MODE VENT - CPAP; Site Right Radial
[2018-11-09] MEDS: ALBUMIN HUMAN 25% 50 ML IV ×2 (12:31→20:18)
[2018-11-09] MEDS: ACETAMINOPHEN 1000MG/100ML IV 65 ML IVPB ×2 (15:40→21:46)
[2018-11-09] MEDS: POTASSIUM PHOSPHATE 20 MEQ in SOD CHLORIDE 0.9% 250 ML IVPB (19:03)
[2018-11-09] MEDS: SOD CHLORIDE 0.9% 500 ML IV (22:50)
[2018-11-10] MEDS: INSULIN ASPART [NOVOLOG] 3 ML PEN SC ×3 (01:00→12:00)
[2018-11-10] MEDS: ALBUTEROL HFA 8 GM INHALER INH ×6 (01:01→21:37)
[2018-11-10] MEDS: IPRATROPIUM (HFA) 12.9 GM INHALER INH ×6 (01:01→21:37)
[2018-11-10] MEDS: ACETAMINOPHEN 1000MG/100ML IV 65 ML IVPB ×2 (03:34→10:08)
[2018-11-10 05:14] LABS: WHITE BLOOD COUNT 2.7 10^3/ul (4.8-10.8)
[2018-11-10 05:14] LABS: ABNORMAL IP MESSAGE 1; HEMATOCRIT 22.8 % (42.0-52.0); HEMOGLOBIN 7.6 g/dl (14.0-18.0); MEAN CORPUSCULAR HEMOGLOBIN 28.5 pg (29.0-33.0); MEAN CORPUSCULAR HGB CONC 33.3 g/dl (32.0-37.0); MEAN CORPUSCULAR VOLUME 85.4 fl (82.0-101.0); NUCLEATED RED BLOOD CELLS% 7.3 /100WBC (0.0-0.0); POSITIVE DIFF @See below; RED BLOOD COUNT 2.67 10^6/ul (4.70-6.10); RED CELL DISTRIBUTION WIDTH 17.6 % (11.5-14.5)
[2018-11-10] MEDS: LACTATED RINGER'S 1,000 ML IV ×2 (05:23→19:54)
[2018-11-10 05:49] LABS: ALANINE AMINOTRANSFERASE 44 IU/L (13-69); ALBUMIN 2.1 g/dl (3.3-4.9); ALBUMIN/GLOBULIN RATIO 0.87; ALKALINE PHOSPHATASE 424 IU/L (42-121); ANION GAP 3 (5-13); ASPARTATE AMINO TRANSFERASE 171 IU/L (15-46); BILIRUBIN,INDIRECT 0.4 mg/dl (0-1.1); BILIRUBIN,TOTAL 0.4 mg/dl (0.2-1.3); BLOOD UREA NITROGEN 40 mg/dl (7-20); CALCIUM 7.7 mg/dl (8.4-10.2); CARBON DIOXIDE 24 mmol/L (21-31); CHLORIDE 110 mmol/L (97-110); GLUCOSE 93 mg/dl (70-220); POTASSIUM 3.8 mmol/L (3.5-5.1); SODIUM 137 mmol/L (135-144); TOTAL PROTEIN 4.5 g/dl (6.1-8.1)
[2018-11-10 05:52] LABS: PHOSPHORUS 2.1 mg/dl (2.5-4.9)
[2018-11-10 06:17] LABS: ADD MAN DIFF? YES; PLATELET COUNT 46 10^3/UL (140-415)
[2018-11-10 07:21] LABS: AADO2 Arterial 63.1 mmHg (7.0-24.0); Allen Test ACCEPTAB; Arterial Base Excess -2.5 mmol/L (-3.0-3); Arterial Blood Gas Oxygen Sat 97.8 mmHG (95.0-100.0); Arterial COHb 0.3 % (0.0-3.0); Arterial HCO3 20.6 mmol/L (22.0-26.0); Arterial MetHb 0.5 % (0.0-1.5); Arterial pCO2 29.2 mmhg (35-45); MODE VENT - AC; Site Right Radial
[2018-11-10 07:56] LABS: ANISOCYTOSIS 1+ (0-0); BAND NEUTROPHILS #M 0.4 10^3/ul (0.0-0.6); BAND NEUTROPHILS % (M) 18 % (0-4); BURR CELLS 3+ (0-0); EOSINOPHILS % (M) 3 % (0-7); ERYTHROBLAST% (NRBC) (M) 14 % (0-0); GIANT THROMBO% (M) 1 % (0-0); LYMPHOCYTES #M 0.9 10^3/ul (0.8-2.9); LYMPHOCYTES % (M) 36 % (15-51); METAMYELOCYTES %M 1 % (0-0); MICROCYTOSIS 1+ (0-0); MONOCYTES % (M) 3 % (0-11); MYELOCYTES % (M) 3 % (0-0); OVALOCYTES 2+ (0-0); PLATELET ESTIMATE SIG DECREASED; POIKILOCYTOSIS 3+ (0-0); POLYCHROMASIA 3+ (0-0); REACTIVE LYMPHOCYTES% (M) 1 % (0-0); SEGMENTED NEUTROPHILS (M) % 37 % (39-77); SMUDGE%M 3 % (0-0); SPHEROCYTES 1+ (0-0); TARGET CELLS 1+ (0-0); TOXIC GRANULATION 3+ (0-0)
[2018-11-10] MEDS: CEFEPIME 1GM/50 ML IVPB ×2 (10:07→20:15)
[2018-11-10] MEDS: ZINC SULFATE 220 MG CAP GTB (10:08)
[2018-11-10] MEDS: FISH OIL 1,000 MG CAP PO ×2 (10:08→20:14)
[2018-11-10] MEDS: ASCORBIC ACID 500 MG TAB GTB ×2 (10:09→20:15)
[2018-11-10] MEDS: METOPROLOL 25 MG TAB PO ×2 (10:09→20:15)
[2018-11-10] MEDS: FINASTERIDE 5 MG TAB GTB (10:09)
[2018-11-10] MEDS: METHENAMINE 1 GM TAB GTB ×2 (10:09→20:14)
[2018-11-10] MEDS: PRENATAL VITAMIN GTB (10:09)
[2018-11-10] MEDS: BALSAM PERU/CASTOR OIL 60 GM TUBE TOP ×2 (10:10→20:15)
[2018-11-10 10:58] LABS: AMMONIA 13 umol/l (9-30)
[2018-11-10] MEDS: ALBUMIN HUMAN 25% 100 ML IV ×2 (12:33→19:49)
[2018-11-10] MEDS: POTASSIUM PHOSPHATE 20 MEQ in SOD CHLORIDE 0.9% 250 ML IVPB (15:40)
[2018-11-10] MEDS: PHYTONADIONE 10 MG/ML INJ SC (20:14)
[2018-11-10 20:41] LABS: INR 1.17; PT RATIO 1.2
[2018-11-10 20:42] LABS: PARTIAL THROMBOPLASTIN TIME 38.7 Sec (23.0-35.0)
[2018-11-10 21:20] LABS: TYPE AND SCREEN 1
[2018-11-11 00:46] LABS: IMMEDIATE SPIN CROSSMATCH 1 2
[2018-11-11] MEDS: ALBUTEROL HFA 8 GM INHALER INH ×6 (01:39→21:43)
[2018-11-11] MEDS: IPRATROPIUM (HFA) 12.9 GM INHALER INH ×6 (01:39→21:43)
[2018-11-11] MEDS: FUROSEMIDE 20 MG INJ IV (02:06)
[2018-11-11] MEDS: ALBUMIN HUMAN 25% 100 ML IV (03:01)
[2018-11-11 05:14] LABS: ABNORMAL IP MESSAGE 1; HEMATOCRIT 19.2 % (42.0-52.0); MEAN CORPUSCULAR HEMOGLOBIN 28.9 pg (29.0-33.0); MEAN CORPUSCULAR HGB CONC 33.9 g/dl (32.0-37.0); MEAN CORPUSCULAR VOLUME 85.3 fl (82.0-101.0); MEAN PLATELET VOLUME 11.1 fl (7.4-10.4); NUCLEATED RED BLOOD CELLS% 5.7 /100WBC (0.0-0.0); PLATELET COUNT 74 10^3/UL (140-415); POSITIVE DIFF @See below; RED BLOOD COUNT 2.25 10^6/ul (4.70-6.10); RED CELL DISTRIBUTION WIDTH 17.6 % (11.5-14.5)
[2018-11-11 05:28] LABS: INR 1.18; PROTIME 15.1 Sec (11.9-14.9); PT RATIO 1.2
[2018-11-11 05:44] LABS: ADD MAN DIFF? YES; ALANINE AMINOTRANSFERASE 47 IU/L (13-69); ALBUMIN/GLOBULIN RATIO 1.36; ALKALINE PHOSPHATASE 335 IU/L (42-121); ANION GAP 7 (5-13); ASPARTATE AMINO TRANSFERASE 106 IU/L (15-46); BILIRUBIN,INDIRECT 0.8 mg/dl (0-1.1); BILIRUBIN,TOTAL 0.8 mg/dl (0.2-1.3); BLOOD UREA NITROGEN 32 mg/dl (7-20); CALCIUM 8.1 mg/dl (8.4-10.2); CARBON DIOXIDE 26 mmol/L (21-31); CHLORIDE 110 mmol/L (97-110); GLUCOSE 89 mg/dl (70-220); HEMOGLOBIN 6.5 g/dl (14.0-18.0); POTASSIUM 3.3 mmol/L (3.5-5.1); SODIUM 143 mmol/L (135-144); TOTAL PROTEIN 5.2 g/dl (6.1-8.1)
[2018-11-11 05:45] LABS: PHOSPHORUS 2.1 mg/dl (2.5-4.9)
[2018-11-11 07:16] LABS: ANISOCYTOSIS 1+ (0-0); BAND NEUTROPHILS #M 0.5 10^3/ul (0.0-0.6); BAND NEUTROPHILS % (M) 17 % (0-4); BURR CELLS 1+ (0-0); ERYTHROBLAST% (NRBC) (M) 19 % (0-0); HYPOCHROMASIA 1+ (0-0); LYMPHOCYTES #M 1.2 10^3/ul (0.8-2.9); LYMPHOCYTES % (M) 42 % (15-51); METAMYELOCYTES %M 2 % (0-0); MONOCYTES % (M) 1 % (0-11); MYELOCYTES % (M) 1 % (0-0); PLATELET ESTIMATE DECREASED; POIKILOCYTOSIS 1+ (0-0); POLYCHROMASIA 3+ (0-0); SEG NEUT #M 1.1 10^3/ul (1.6-7.5); SEGMENTED NEUTROPHILS (M) % 37 % (39-77); SMUDGE%M 10 % (0-0); SPHEROCYTES 1+ (0-0)
[2018-11-11] MEDS: LACTATED RINGER'S 1,000 ML IV ×2 (08:15→17:17)
[2018-11-11 08:31] LABS: IMMEDIATE SPIN CROSSMATCH 1
[2018-11-11] MEDS: POTASSIUM PHOSPHATE 30 MM in SOD CHLORIDE 0.9% 250 ML IVPB (11:33)
[2018-11-11] MEDS: POTASSIUM CHLORIDE 20 MEQ POWDER FOR ORAL SOLN JT (11:33)
[2018-11-11] MEDS: CEFEPIME 1GM/50 ML IVPB ×2 (11:33→21:28)
[2018-11-11] MEDS: FINASTERIDE 5 MG TAB GTB (11:34)
[2018-11-11] MEDS: ZINC SULFATE 220 MG CAP GTB (11:34)
[2018-11-11] MEDS: METOPROLOL 25 MG TAB PO ×2 (11:34→21:29)
[2018-11-11] MEDS: ASCORBIC ACID 500 MG TAB GTB ×2 (11:34→21:29)
[2018-11-11] MEDS: METHENAMINE 1 GM TAB GTB ×2 (11:34→21:28)
[2018-11-11] MEDS: BALSAM PERU/CASTOR OIL 60 GM TUBE TOP ×2 (11:35→21:29)
[2018-11-11] MEDS: PRENATAL VITAMIN GTB (11:35)
[2018-11-11] MEDS: FISH OIL 1,000 MG CAP PO ×2 (11:35→21:28)
[2018-11-11] MEDS: PHYTONADIONE 10 MG/ML INJ SC (11:35)
[2018-11-11] MEDS: LIDOCAINE 1% (MPF) 5 ML VIAL (14:34)
[2018-11-11 18:40] LABS: FLD MN% 68.3 %; FLD PMN% 31.7 %; FLD RBC 1000 /uL; FLD WBC 145 /cmm
[2018-11-11 19:29] LABS: FLUID LD 481 U/L; FLUID TOTAL PROTEIN 2.1 g/dl
[2018-11-11 19:31] LABS: FLD TYPE THORACENTHESIS
[2018-11-11 19:31] LABS: FLD CLARITY HAZY; FLD COLOR AMBER; PATH REVIEW? YES
[2018-11-12] MEDS: IPRATROPIUM (HFA) 12.9 GM INHALER INH ×5 (01:15→17:50)
[2018-11-12] MEDS: ALBUTEROL HFA 8 GM INHALER INH ×5 (01:15→17:51)
[2018-11-12 05:34] LABS: WHITE BLOOD COUNT 3.8 10^3/ul (4.8-10.8)
[2018-11-12 05:34] LABS: ABNORMAL IP MESSAGE 1; HEMATOCRIT 32.3 % (42.0-52.0); HEMOGLOBIN 10.9 g/dl (14.0-18.0); MEAN CORPUSCULAR HEMOGLOBIN 28.5 pg (29.0-33.0); MEAN CORPUSCULAR HGB CONC 33.7 g/dl (32.0-37.0); MEAN CORPUSCULAR VOLUME 84.3 fl (82.0-101.0); MEAN PLATELET VOLUME 11.5 fl (7.4-10.4); NUCLEATED RED BLOOD CELLS% 5.2 /100WBC (0.0-0.0); PLATELET COUNT 77 10^3/UL (140-415); POSITIVE DIFF @See below; RED BLOOD COUNT 3.83 10^6/ul (4.70-6.10); RED CELL DISTRIBUTION WIDTH 16.3 % (11.5-14.5)
[2018-11-12 05:45] LABS: ADD MAN DIFF? YES
[2018-11-12 06:11] LABS: ALANINE AMINOTRANSFERASE 57 IU/L (13-69); ALBUMIN 2.5 g/dl (3.3-4.9); ALBUMIN/GLOBULIN RATIO 1.13; ALKALINE PHOSPHATASE 430 IU/L (42-121); ANION GAP 4 (5-13); ASPARTATE AMINO TRANSFERASE 101 IU/L (15-46); BILIRUBIN,INDIRECT 0.6 mg/dl (0-1.1); BILIRUBIN,TOTAL 0.6 mg/dl (0.2-1.3); BLOOD UREA NITROGEN 28 mg/dl (7-20); CALCIUM 7.8 mg/dl (8.4-10.2); CARBON DIOXIDE 26 mmol/L (21-31); CHLORIDE 111 mmol/L (97-110); GLUCOSE 134 mg/dl (70-220); POTASSIUM 4.1 mmol/L (3.5-5.1); SODIUM 141 mmol/L (135-144); TOTAL PROTEIN 4.7 g/dl (6.1-8.1)
[2018-11-12 09:46] LABS: ANISOCYTOSIS 1+ (0-0); BAND NEUTROPHILS #M 0.1 10^3/ul (0.0-0.6); BAND NEUTROPHILS % (M) 4 % (0-4); BURR CELLS 1+ (0-0); ERYTHROBLAST% (NRBC) (M) 9 % (0-0); GIANT THROMBO% (M) 5 % (0-0); HYPOCHROMASIA 1+ (0-0); LYMPHOCYTES #M 0.6 10^3/ul (0.8-2.9); LYMPHOCYTES % (M) 16 % (15-51); METAMYELOCYTES %M 2 % (0-0); MICROCYTOSIS 1+ (0-0); MONOCYTE #M 0.1 10^3/ul (0.3-0.9); MONOCYTES % (M) 4 % (0-11); MYELOCYTES #M 0.3 10^3/ul (0.0-0.0); MYELOCYTES % (M) 9 % (0-0); PLASMAC%(M) 1 % (0); PLATELET ESTIMATE DECREASED; POIKILOCYTOSIS 1+ (0-0); POLYCHROMASIA 1+ (0-0); PROMYELOCYTES % (M) 1 % (0-0); REACTIVE LYMPHOCYTES% (M) 1 % (0-0); SEG NEUT #M 2.4 10^3/ul (1.6-7.5); SEGMENTED NEUTROPHILS (M) % 62 % (39-77); SMUDGE%M 11 % (0-0); TOXIC GRANULATION 2+ (0-0)
[2018-11-12] MEDS: METHENAMINE 1 GM TAB GTB ×2 (10:29→21:26)
[2018-11-12] MEDS: FINASTERIDE 5 MG TAB GTB (10:29)
[2018-11-12] MEDS: CEFEPIME 1GM/50 ML IVPB ×2 (10:29→21:30)
[2018-11-12] MEDS: ZINC SULFATE 220 MG CAP GTB (10:29)
[2018-11-12] MEDS: PRENATAL VITAMIN GTB (10:30)
[2018-11-12] MEDS: ASCORBIC ACID 500 MG TAB GTB ×2 (10:30→21:27)
[2018-11-12] MEDS: FISH OIL 1,000 MG CAP PO ×2 (10:30→21:26)
[2018-11-12] MEDS: BALSAM PERU/CASTOR OIL 60 GM TUBE TOP ×2 (10:31→21:30)
[2018-11-12] MEDS: METOPROLOL 25 MG TAB PO ×2 (10:31→21:29)
[2018-11-12 12:41] LABS: OCCULT BLOOD STOOL POSITIVE (NEGATIVE)
[2018-11-12] MEDS: LACTATED RINGER'S 1,000 ML IV (13:15)
[2018-11-12] MEDS: PANTOPRAZOLE 40 MG INJ IV (15:23)
[2018-11-12] MEDS: ACETAMINOPHEN 1000MG/100ML IV 100 ML IVPB (15:24)
[2018-11-13] MEDS: LACTATED RINGER'S 1,000 ML IV ×2 (04:59→20:30)
[2018-11-13] MEDS: PANTOPRAZOLE 40 MG INJ IV (05:00)
[2018-11-13 05:15] LABS: AADO2 Arterial 60.3 mmHg (7.0-24.0); Allen Test ACCEPTAB; Arterial Base Excess 0 mmol/L (-3.0-3); Arterial Blood Gas Oxygen Sat 97.8 mmHG (95.0-100.0); Arterial COHb 0.3 % (0.0-3.0); Arterial Fraction of Oxyhgb 97.2 % (93.0-99.0); Arterial HCO3 22.6 mmol/L (22.0-26.0); Arterial MetHb 0.3 % (0.0-1.5); Arterial pCO2 30.3 mmhg (35-45); MODE NASAL CANNULA; Site Right Radial
[2018-11-13 05:41] LABS: ABNORMAL IP MESSAGE 1; ADD MAN DIFF? NO; BASOPHIL # 0.1 10^3/ul (0.0-0.1); BASOPHILS % 1.9 % (0.0-2.0); EOSINOPHILS % 0.7 % (0.0-7.0); HEMATOCRIT 30.3 % (42.0-52.0); HEMOGLOBIN 10.2 g/dl (14.0-18.0); LYMPHOCYTES # 0.6 10^3/ul (0.8-2.9); LYMPHOCYTES % 13.1 % (15.0-51.0); MEAN CORPUSCULAR HEMOGLOBIN 28.7 pg (29.0-33.0); MEAN CORPUSCULAR HGB CONC 33.7 g/dl (32.0-37.0); MEAN CORPUSCULAR VOLUME 85.1 fl (82.0-101.0); MEAN PLATELET VOLUME 11.6 fl (7.4-10.4); MONOCYTE # 0.2 10^3/ul (0.3-0.9); MONOCYTES % 3.8 % (0.0-11.0); NEUTROPHIL # 2.6 10^3/ul (1.6-7.5); NEUTROPHILS % 61.6 % (39.0-77.0); NUCLEATED RED BLOOD CELLS # 0.2 10^3/ul (0.0-0.0); NUCLEATED RED BLOOD CELLS% 3.6 /100WBC (0.0-0.0); PLATELET COUNT 78 10^3/UL (140-415); POSITIVE DIFF @See below; RED BLOOD COUNT 3.56 10^6/ul (4.70-6.10); RED CELL DISTRIBUTION WIDTH 17.2 % (11.5-14.5)
[2018-11-13 05:41] LABS: WHITE BLOOD COUNT 4.2 10^3/ul (4.8-10.8)
[2018-11-13 06:12] LABS: ALANINE AMINOTRANSFERASE 45 IU/L (13-69); ALBUMIN 2.2 g/dl (3.3-4.9); ALBUMIN/GLOBULIN RATIO 0.95; ALKALINE PHOSPHATASE 386 IU/L (42-121); ANION GAP 2 (5-13); ASPARTATE AMINO TRANSFERASE 64 IU/L (15-46); BILIRUBIN,INDIRECT 0.5 mg/dl (0-1.1); BILIRUBIN,TOTAL 0.5 mg/dl (0.2-1.3); BLOOD UREA NITROGEN 24 mg/dl (7-20); CALCIUM 8.3 mg/dl (8.4-10.2); CARBON DIOXIDE 27 mmol/L (21-31); CHLORIDE 111 mmol/L (97-110); GLUCOSE 128 mg/dl (70-220); POTASSIUM 3.8 mmol/L (3.5-5.1); SODIUM 140 mmol/L (135-144); TOTAL PROTEIN 4.5 g/dl (6.1-8.1)
[2018-11-13 07:25] LABS: ANISOCYTOSIS 1+ (0-0); BAND NEUTROPHILS #M 0.3 10^3/ul (0.0-0.6); BAND NEUTROPHILS % (M) 9 % (0-4); BURR CELLS 2+ (0-0); ERYTHROBLAST% (NRBC) (M) 6 % (0-0); GIANT THROMBO% (M) 4 % (0-0); LYMPHOCYTES #M 0.5 10^3/ul (0.8-2.9); LYMPHOCYTES % (M) 14 % (15-51); METAMYELOCYTES #M 0.1 10^3/ul (0.0-0.0); METAMYELOCYTES %M 4 % (0-0); MYELOCYTES % (M) 1 % (0-0); OVALOCYTES 1+ (0-0); PLASMAC%(M) 1 % (0); POIKILOCYTOSIS 2+ (0-0); POLYCHROMASIA 1+ (0-0); PROMYELOCYTES #M 0.1 10^3/ul (0-0); PROMYELOCYTES % (M) 3 % (0-0); SEG NEUT #M 2.9 10^3/ul (1.6-7.5); SEGMENTED NEUTROPHILS (M) % 68 % (39-77); SMUDGE%M 9 % (0-0); TOXIC GRANULATION 2+ (0-0)
[2018-11-13 07:39] LABS: PLATELET ESTIMATE DECREASED
[2018-11-13] MEDS: ASCORBIC ACID 500 MG TAB GTB ×2 (09:13→20:28)
[2018-11-13] MEDS: CEFEPIME 1GM/50 ML IVPB (09:13)
[2018-11-13] MEDS: FISH OIL 1,000 MG CAP PO ×2 (09:13→20:29)
[2018-11-13] MEDS: METOPROLOL 25 MG TAB PO ×2 (09:14→20:29)
[2018-11-13] MEDS: ZINC SULFATE 220 MG CAP GTB (09:14)
[2018-11-13] MEDS: PRENATAL VITAMIN GTB (09:14)
[2018-11-13] MEDS: FINASTERIDE 5 MG TAB GTB (09:15)
[2018-11-13] MEDS: BALSAM PERU/CASTOR OIL 60 GM TUBE TOP ×2 (09:15→20:29)
[2018-11-13] MEDS: METHENAMINE 1 GM TAB GTB ×2 (09:15→20:27)
[2018-11-13] MEDS: CYANOCOBALAMIN 1000 MCG INJ IM (15:38)
[2018-11-13] MEDS: CIPROFLOXACIN 500 MG TAB JT (20:28)
[2018-11-13] MEDS: ALBUTEROL 0.083% (NEB) 2.5 MG/3 ML AMP HHN (21:34)
[2018-11-13] MEDS: ACETYLCYSTEINE 20% 4 ML VIAL NEB (21:34)
[2018-11-13 22:06] LABS: AADO2 Arterial 69.6 mmHg (7.0-24.0); Arterial Base Excess 0.9 mmol/L (-3.0-3); Arterial Blood Gas Oxygen Sat 96.5 mmHG (95.0-100.0); Arterial COHb 0.6 % (0.0-3.0); Arterial Fraction of Oxyhgb 95.5 % (93.0-99.0); Arterial HCO3 24.6 mmol/L (22.0-26.0); Arterial MetHb 0.4 % (0.0-1.5); Arterial pCO2 35.9 mmhg (35-45); MODE NASAL CANNULA; Site Left Radial
[2018-11-14] MEDS: RACEPINEPHRINE 2.25%(NEB) 0.5 ML AMP HHN (00:34)
[2018-11-14] MEDS: ALBUTEROL 0.083% (NEB) 2.5 MG/3 ML AMP HHN ×8 (00:36→23:14)
[2018-11-14] MEDS: ACETYLCYSTEINE 20% 4 ML VIAL NEB ×8 (00:36→23:14)
[2018-11-14 01:10] LABS: AADO2 Arterial 426.7 mmHg (7.0-24.0); Allen Test ACCEPTAB; Arterial Base Excess -0.5 mmol/L (-3.0-3); Arterial Blood Gas Oxygen Sat 99.2 mmHG (95.0-100.0); Arterial COHb 0.3 % (0.0-3.0); Arterial Fraction of Oxyhgb 98.5 % (93.0-99.0); Arterial HCO3 24.6 mmol/L (22.0-26.0); Arterial MetHb 0.4 % (0.0-1.5); Arterial pCO2 42.2 mmhg (35-45); Blood Gas IEPAP 15/5; MODE MASK - BIPAP; Site Left Radial
[2018-11-14] MEDS ORDERED: ACETYLCYSTEINE 20% 4 ML VIAL NEB (05:00)
[2018-11-14 05:15] LABS: AADO2 Arterial 250.7 mmHg (7.0-24.0); Allen Test ACCEPTAB; Arterial Base Excess 1.6 mmol/L (-3.0-3); Arterial Blood Gas Oxygen Sat 99.6 mmHG (95.0-100.0); Arterial COHb 0.4 % (0.0-3.0); Arterial Fraction of Oxyhgb 98.6 % (93.0-99.0); Arterial HCO3 25.6 mmol/L (22.0-26.0); Arterial MetHb 0.6 % (0.0-1.5); Arterial pCO2 38.2 mmhg (35-45); Blood Gas IEPAP 15/5; Blood Gas PS 10; MODE MASK - BIPAP; Site Left Radial
[2018-11-14 05:25] LABS: ABNORMAL IP MESSAGE 1; HEMATOCRIT 32.7 % (42.0-52.0); HEMOGLOBIN 10.9 g/dl (14.0-18.0); MEAN CORPUSCULAR HEMOGLOBIN 28.8 pg (29.0-33.0); MEAN CORPUSCULAR HGB CONC 33.3 g/dl (32.0-37.0); MEAN CORPUSCULAR VOLUME 86.3 fl (82.0-101.0); MEAN PLATELET VOLUME 12.8 fl (7.4-10.4); NUCLEATED RED BLOOD CELLS% 2.8 /100WBC (0.0-0.0); PLATELET COUNT 106 10^3/UL (140-415); POSITIVE DIFF @See below; RED BLOOD COUNT 3.79 10^6/ul (4.70-6.10); RED CELL DISTRIBUTION WIDTH 17.3 % (11.5-14.5)
[2018-11-14 05:25] LABS: WHITE BLOOD COUNT 6.7 10^3/ul (4.8-10.8)
[2018-11-14 05:42] LABS: ADD MAN DIFF? YES
[2018-11-14] MEDS: PANTOPRAZOLE 40 MG INJ IV (05:42)
[2018-11-14] MEDS: CIPROFLOXACIN 500 MG TAB JT ×2 (05:42→18:47)
[2018-11-14 06:04] LABS: LACTIC ACID 1.3 mmol/L (0.5-2.0)
[2018-11-14 06:36] LABS: ALANINE AMINOTRANSFERASE 40 IU/L (13-69); ALBUMIN 2.1 g/dl (3.3-4.9); ALBUMIN/GLOBULIN RATIO 0.91; ALKALINE PHOSPHATASE 420 IU/L (42-121); ANION GAP 4 (5-13); ASPARTATE AMINO TRANSFERASE 54 IU/L (15-46); BILIRUBIN,INDIRECT 0.4 mg/dl (0-1.1); BILIRUBIN,TOTAL 0.4 mg/dl (0.2-1.3); BLOOD UREA NITROGEN 24 mg/dl (7-20); CALCIUM 8.4 mg/dl (8.4-10.2); CARBON DIOXIDE 26 mmol/L (21-31); CHLORIDE 110 mmol/L (97-110); CREATININE 0.25 mg/dl (0.61-1.24); GLUCOSE 160 mg/dl (70-220); POTASSIUM 3.8 mmol/L (3.5-5.1); SODIUM 140 mmol/L (135-144); TOTAL PROTEIN 4.4 g/dl (6.1-8.1)
[2018-11-14] MEDS: FISH OIL 1,000 MG CAP PO ×2 (09:07→20:58)
[2018-11-14] MEDS: METHENAMINE 1 GM TAB GTB ×2 (09:07→21:16)
[2018-11-14] MEDS: FINASTERIDE 5 MG TAB GTB (09:07)
[2018-11-14] MEDS: PRENATAL VITAMIN GTB (09:08)
[2018-11-14] MEDS: METOPROLOL 25 MG TAB PO (09:08)
[2018-11-14] MEDS: BALSAM PERU/CASTOR OIL 60 GM TUBE TOP ×2 (09:08→21:17)
[2018-11-14] MEDS: ZINC SULFATE 220 MG CAP GTB (09:08)
[2018-11-14] MEDS: ASCORBIC ACID 500 MG TAB GTB ×2 (09:09→21:16)
[2018-11-14 10:02] LABS: ANISOCYTOSIS 1+ (0-0); BAND NEUTROPHILS #M 0.6 10^3/ul (0.0-0.6); BAND NEUTROPHILS % (M) 9 % (0-4); ERYTHROBLAST% (NRBC) (M) 5 % (0-0); GIANT THROMBO% (M) 3 % (0-0); LYMPHOCYTES #M 0.4 10^3/ul (0.8-2.9); LYMPHOCYTES % (M) 7 % (15-51); METAMYELOCYTES #M 0.2 10^3/ul (0.0-0.0); METAMYELOCYTES %M 3 % (0-0); MONOCYTES % (M) 1 % (0-11); MYELOCYTES #M 0.4 10^3/ul (0.0-0.0); MYELOCYTES % (M) 6 % (0-0); PLATELET ESTIMATE DECREASED; POLYCHROMASIA 1+ (0-0); PROMYELOCYTES #M 0.1 10^3/ul (0-0); PROMYELOCYTES % (M) 2 % (0-0); REACTIVE LYMPHOCYTES #M 0.1 10^3/ul (0.0-0.0); REACTIVE LYMPHOCYTES% (M) 2 % (0-0); SEG NEUT #M 4.7 10^3/ul (1.6-7.5); SEGMENTED NEUTROPHILS (M) % 70 % (39-77); SMUDGE%M 24 % (0-0)
[2018-11-14] MEDS: LIDOCAINE 1% (MPF) 5 ML VIAL (16:54)
[2018-11-14] MEDS: METOPROLOL 25 MG TAB JT (21:16)
[2018-11-15] MEDS: ARTIFICIAL TEARS 15 ML OPH BOTH EYES ×4 (00:09→21:15)
[2018-11-15] MEDS: LEVALBUTEROL (NEB) 0.63 MG/3 ML AMP HHN ×4 (01:41→20:11)
[2018-11-15] MEDS: ACETYLCYSTEINE 20% 4 ML VIAL NEB ×4 (04:11→20:11)
[2018-11-15] MEDS: PANTOPRAZOLE 40 MG INJ IV (05:56)
[2018-11-15] MEDS: CIPROFLOXACIN 500 MG TAB JT (05:56)
[2018-11-15 07:35] LABS: Allen Test ACCEPTAB; Arterial Base Excess 0.1 mmol/L (-3.0-3); Arterial Blood Gas Oxygen Sat 98.5 mmHG (95.0-100.0); Arterial COHb 0.1 % (0.0-3.0); Arterial HCO3 22.4 mmol/L (22.0-26.0); Arterial MetHb 0.4 % (0.0-1.5); Arterial pCO2 28.6 mmhg (35-45); Blood Gas IEPAP 15/5; Blood Gas PS 10; MODE MASK - BIPAP; Site Right Radial
[2018-11-15] MEDS: FISH OIL 1,000 MG CAP PO ×2 (08:40→21:15)
[2018-11-15] MEDS: ASCORBIC ACID 500 MG TAB GTB ×2 (08:40→21:15)
[2018-11-15] MEDS: ZINC SULFATE 220 MG CAP GTB (08:40)
[2018-11-15] MEDS: METHENAMINE 1 GM TAB GTB ×2 (08:40→21:15)
[2018-11-15] MEDS: FINASTERIDE 5 MG TAB GTB (08:40)
[2018-11-15] MEDS: PRENATAL VITAMIN GTB (08:41)
[2018-11-15] MEDS: METOPROLOL 25 MG TAB JT ×2 (08:41→21:17)
[2018-11-15] MEDS: BALSAM PERU/CASTOR OIL 60 GM TUBE TOP ×2 (08:42→21:17)
[2018-11-16] MEDS: LEVALBUTEROL (NEB) 0.63 MG/3 ML AMP HHN ×4 (02:32→20:01)
[2018-11-16] MEDS: ACETYLCYSTEINE 20% 4 ML VIAL NEB ×4 (02:32→20:01)
[2018-11-16] MEDS: ACETAMINOPHEN 500 MG TAB PO (03:09)
[2018-11-16 05:43] LABS: ADD MAN DIFF? NO
[2018-11-16 05:49] LABS: WHITE BLOOD COUNT 6.3 10^3/ul (4.8-10.8)
[2018-11-16 05:49] LABS: ABNORMAL IP MESSAGE 1; BASOPHIL # 0.1 10^3/ul (0.0-0.1); BASOPHILS % 1.3 % (0.0-2.0); EOSINOPHILS % 0.5 % (0.0-7.0); HEMOGLOBIN 9.2 g/dl (14.0-18.0); LYMPHOCYTES # 0.7 10^3/ul (0.8-2.9); LYMPHOCYTES % 10.7 % (15.0-51.0); MEAN CORPUSCULAR HEMOGLOBIN 28.4 pg (29.0-33.0); MEAN CORPUSCULAR HGB CONC 32.9 g/dl (32.0-37.0); MEAN CORPUSCULAR VOLUME 86.4 fl (82.0-101.0); MEAN PLATELET VOLUME 11.9 fl (7.4-10.4); MONOCYTE # 0.2 10^3/ul (0.3-0.9); MONOCYTES % 2.7 % (0.0-11.0); NEUTROPHIL # 4.7 10^3/ul (1.6-7.5); NEUTROPHILS % 73.9 % (39.0-77.0); NUCLEATED RED BLOOD CELLS # 0.1 10^3/ul (0.0-0.0); NUCLEATED RED BLOOD CELLS% 2.2 /100WBC (0.0-0.0); PLATELET COUNT 102 10^3/UL (140-415); POSITIVE DIFF @See below; RED BLOOD COUNT 3.24 10^6/ul (4.70-6.10); RED CELL DISTRIBUTION WIDTH 17.2 % (11.5-14.5)
[2018-11-16] MEDS: PANTOPRAZOLE 40 MG INJ IV (06:10)
[2018-11-16 06:13] LABS: ANION GAP 2 (5-13); BLOOD UREA NITROGEN 31 mg/dl (7-20); CALCIUM 8.5 mg/dl (8.4-10.2); CARBON DIOXIDE 29 mmol/L (21-31); CHLORIDE 111 mmol/L (97-110); CREATININE 0.29 mg/dl (0.61-1.24); GLUCOSE 108 mg/dl (70-220); PHOSPHORUS 1.7 mg/dl (2.5-4.9); POTASSIUM 3.1 mmol/L (3.5-5.1); SODIUM 142 mmol/L (135-144)
[2018-11-16 06:56] LABS: ANISOCYTOSIS 1+ (0-0); BAND NEUTROPHILS #M 0.5 10^3/ul (0.0-0.6); BAND NEUTROPHILS % (M) 9 % (0-4); BASOPHIL #M 1.9 10^3/ul (0.0-0.0); BASOPHILS % (M) 31 % (0-2); ERYTHROBLAST% (NRBC) (M) 4 % (0-0); GIANT THROMBO% (M) 3 % (0-0); LYMPHOCYTES #M 0.8 10^3/ul (0.8-2.9); LYMPHOCYTES % (M) 14 % (15-51); METAMYELOCYTES #M 0.1 10^3/ul (0.0-0.0); METAMYELOCYTES %M 3 % (0-0); MYELOCYTES #M 0.1 10^3/ul (0.0-0.0); MYELOCYTES % (M) 2 % (0-0); PLATELET ESTIMATE DECREASED; POLYCHROMASIA 3+ (0-0); SEG NEUT #M 2.6 10^3/ul (1.6-7.5); SEGMENTED NEUTROPHILS (M) % 40 % (39-77); TOXIC GRANULATION 2+ (0-0)
[2018-11-16 07:38] LABS: AADO2 Arterial 95.2 mmHg (7.0-24.0); Allen Test ACCEPTAB; Arterial Base Excess 1.8 mmol/L (-3.0-3); Arterial COHb 0.3 % (0.0-3.0); Arterial Fraction of Oxyhgb 93.4 % (93.0-99.0); Arterial HCO3 26.4 mmol/L (22.0-26.0); Arterial MetHb 0.3 % (0.0-1.5); Arterial pCO2 41.5 mmhg (35-45); MODE NASAL CANNULA; Site Right Radial
[2018-11-16 08:14] LABS: INR 1.12; PARTIAL THROMBOPLASTIN TIME 36.3 Sec (23.0-35.0); PROTIME 14.5 Sec (11.9-14.9); PT RATIO 1.1
[2018-11-16] MEDS: FISH OIL 1,000 MG CAP PO (08:38)
[2018-11-16] MEDS: ZINC SULFATE 220 MG CAP GTB (08:38)
[2018-11-16] MEDS: ASCORBIC ACID 500 MG TAB GTB ×2 (08:39→21:03)
[2018-11-16] MEDS: METOPROLOL 25 MG TAB JT ×2 (08:39→21:03)
[2018-11-16] MEDS: FINASTERIDE 5 MG TAB GTB (08:40)
[2018-11-16] MEDS: METHENAMINE 1 GM TAB GTB ×2 (08:40→21:02)
[2018-11-16] MEDS: CIPROFLOXACIN 500 MG TAB JT (08:40)
[2018-11-16] MEDS: PRENATAL VITAMIN GTB (08:40)
[2018-11-16] MEDS: BALSAM PERU/CASTOR OIL 60 GM TUBE TOP ×2 (08:41→21:03)
[2018-11-16] MEDS: ARTIFICIAL TEARS 15 ML OPH BOTH EYES ×3 (08:41→21:04)
[2018-11-16] MEDS: POTASSIUM CHLORIDE 50 ML IVPB ×2 (15:05→17:31)
[2018-11-16] MEDS ORDERED: LOPERAMIDE HCL 1 MG/5 ML LIQUID (10 ML UD CUP) GTB (17:00)
[2018-11-17 01:31] LABS: AADO2 Arterial 564.8 mmHg (7.0-24.0); Allen Test ACCEPTAB; Arterial Base Excess 3.6 mmol/L (-3.0-3); Arterial Blood Gas Oxygen Sat 96.8 mmHG (95.0-100.0); Arterial COHb 0.2 % (0.0-3.0); Arterial Fraction of Oxyhgb 96.2 % (93.0-99.0); Arterial HCO3 30.3 mmol/L (22.0-26.0); Arterial MetHb 0.4 % (0.0-1.5); Arterial pCO2 55.8 mmhg (35-45); Blood Gas IEPAP 15/5; Blood Gas PS 10; MODE MASK - BIPAP; Site Left Radial
[2018-11-17] MEDS: LEVALBUTEROL (NEB) 0.63 MG/3 ML AMP HHN ×3 (01:54→11:15)
[2018-11-17] MEDS: ACETYLCYSTEINE 20% 4 ML VIAL NEB ×3 (01:54→11:15)
[2018-11-17] MEDS: ACETAMINOPHEN 500 MG TAB PO (03:04)
[2018-11-17 06:16] LABS: AADO2 Arterial 228.4 mmHg (7.0-24.0); Allen Test ACCEPTAB; Arterial Blood Gas Oxygen Sat 99.5 mmHG (95.0-100.0); Arterial COHb 0.3 % (0.0-3.0); Arterial Fraction of Oxyhgb 98.7 % (93.0-99.0); Arterial HCO3 28.5 mmol/L (22.0-26.0); Arterial MetHb 0.5 % (0.0-1.5); Arterial pCO2 59.7 mmhg (35-45); Blood Gas IEPAP 15/5; Blood Gas PS 10; MODE MASK - BIPAP; Site Right Radial
[2018-11-17 06:19] LABS: WHITE BLOOD COUNT 11.9 10^3/ul (4.8-10.8)
[2018-11-17 06:19] LABS: ABNORMAL IP MESSAGE 1; HEMATOCRIT 32.4 % (42.0-52.0); HEMOGLOBIN 10.4 g/dl (14.0-18.0); MEAN CORPUSCULAR HEMOGLOBIN 28.3 pg (29.0-33.0); MEAN CORPUSCULAR HGB CONC 32.1 g/dl (32.0-37.0); MEAN PLATELET VOLUME 11.4 fl (7.4-10.4); NUCLEATED RED BLOOD CELLS% 2.4 /100WBC (0.0-0.0); PLATELET COUNT 134 10^3/UL (140-415); POSITIVE DIFF @See below; RED BLOOD COUNT 3.68 10^6/ul (4.70-6.10); RED CELL DISTRIBUTION WIDTH 17.9 % (11.5-14.5)
[2018-11-17 06:27] LABS: ADD MAN DIFF? YES
[2018-11-17 06:42] LABS: ANION GAP 4 (5-13); BLOOD UREA NITROGEN 30 mg/dl (7-20); CALCIUM 9.2 mg/dl (8.4-10.2); CARBON DIOXIDE 30 mmol/L (21-31); CHLORIDE 109 mmol/L (97-110); CREATININE 0.31 mg/dl (0.61-1.24); GLUCOSE 101 mg/dl (70-220); MAGNESIUM 2.1 mg/dl (1.7-2.5); PHOSPHORUS 2.9 mg/dl (2.5-4.9); POTASSIUM 3.7 mmol/L (3.5-5.1); SODIUM 143 mmol/L (135-144)
[2018-11-17] MEDS: PANTOPRAZOLE 40 MG INJ IV (07:31)
[2018-11-17] MEDS: METOPROLOL 25 MG TAB JT (07:54)
[2018-11-17 08:40] LABS: ANISOCYTOSIS 1+ (0-0); BAND NEUTROPHILS % (M) 9 % (0-4); BASOPHIL #M 0.1 10^3/ul (0.0-0.0); BASOPHILS % (M) 1 % (0-2); BURR CELLS 1+ (0-0); ERYTHROBLAST% (NRBC) (M) 1 % (0-0); LYMPHOCYTES #M 0.4 10^3/ul (0.8-2.9); LYMPHOCYTES % (M) 4 % (15-51); MONOCYTE #M 0.3 10^3/ul (0.3-0.9); MONOCYTES % (M) 3 % (0-11); MYELOCYTES #M 0.3 10^3/ul (0.0-0.0); MYELOCYTES % (M) 3 % (0-0); OVALOCYTES 1+ (0-0); PLATELET ESTIMATE NORMAL; POIKILOCYTOSIS 1+ (0-0); POLYCHROMASIA 3+ (0-0); REACTIVE LYMPHOCYTES #M 0.1 10^3/ul (0.0-0.0); REACTIVE LYMPHOCYTES% (M) 1 % (0-0); SEG NEUT #M 9.5 10^3/ul (1.6-7.5); SEGMENTED NEUTROPHILS (M) % 79 % (39-77)
[2018-11-17 08:42] LABS: TOXIC GRANULATION 3+ (0-0)
[2018-11-17] MEDS: PRENATAL VITAMIN GTB (09:50)
[2018-11-17] MEDS: ZINC SULFATE 220 MG CAP GTB (09:50)
[2018-11-17] MEDS: FINASTERIDE 5 MG TAB GTB (09:51)
[2018-11-17] MEDS: ASCORBIC ACID 500 MG TAB GTB ×2 (09:51→21:54)
[2018-11-17] MEDS: BALSAM PERU/CASTOR OIL 60 GM TUBE TOP ×2 (09:51→21:54)
[2018-11-17] MEDS: METHENAMINE 1 GM TAB GTB (09:51)
[2018-11-17] MEDS ORDERED: METOPROLOL 5 MG INJ IV ×2 (10:00→17:30)
[2018-11-17] MEDS: ARTIFICIAL TEARS 15 ML OPH BOTH EYES ×3 (10:00→21:54)
[2018-11-17] MEDS: LACTATED RINGER'S 500 ML IV (10:35)
[2018-11-17] MEDS: DIGOXIN 500 MCG INJ IV (10:47)
[2018-11-17] MEDS ORDERED: VANCOMYCIN IV PER PHARMACY XX (11:30)
[2018-11-17] MEDS: LORAZEPAM 2 MG INJ IV ×3 (11:32→13:33)
[2018-11-17] MEDS: CEFEPIME 2GM/50 ML (PMX) 50 ML IVPB ×2 (11:36→21:54)
[2018-11-17 12:53] LABS: LACTIC ACID 0.9 mmol/L (0.5-2.0)
[2018-11-17 13:56] LABS: PROCALCITONIN 0.39 ng/mL (0.00-0.10)
[2018-11-17] MEDS: VANCOMYCIN 1 GM 250 ML IVPB (14:00)
[2018-11-17] MEDS: VANCOMYCIN 1 GM (PMX) 250 ML IVPB (16:25)
[2018-11-17] MEDS ORDERED: LOPERAMIDE HCL 1 MG/5 ML LIQUID (10 ML UD CUP) GTB (17:30)
[2018-11-17] MEDS ORDERED: ACETYLCYSTEINE 20% 4 ML VIAL NEB ×2 (17:30→20:00)
[2018-11-17] MEDS ORDERED: PENDING SANTYL ORDER FOR WOUND CARE XX (17:30)
[2018-11-17] MEDS ORDERED: LEVALBUTEROL (NEB) 0.63 MG/3 ML AMP HHN (20:00)
[2018-11-17] MEDS ORDERED: morphine 2 MG INJ IV (20:00)
[2018-11-17] MEDS: METOPROLOL 25 MG TAB GTB (21:00)
[2018-11-17] MEDS: METHENAMINE 1 GM TAB PO (21:54)
[2018-11-17] MEDS: morphine 2 MG INJ IV (22:16)
[2018-11-18] MEDS: LEVALBUTEROL (NEB) 0.63 MG/3 ML AMP HHN ×4 (01:56→20:25)
[2018-11-18] MEDS: ACETYLCYSTEINE 20% 4 ML VIAL NEB ×4 (01:57→20:25)
[2018-11-18] MEDS: morphine 2 MG INJ IV ×3 (03:27→23:25)
[2018-11-18] MEDS: LANSOPRAZOLE 30 MG CAP GTB (05:54)
[2018-11-18] MEDS ORDERED: LANSOPRAZOLE 30 MG CAP GTB (06:00)
[2018-11-18] MEDS: METOPROLOL 25 MG TAB GTB ×2 (09:00→21:47)
[2018-11-18] MEDS: ZINC SULFATE 220 MG CAP GTB (11:01)
[2018-11-18] MEDS: FINASTERIDE 5 MG TAB GTB (11:01)
[2018-11-18] MEDS: METHENAMINE 1 GM TAB PO (11:01)
[2018-11-18] MEDS: ASCORBIC ACID 500 MG TAB GTB ×2 (11:01→21:48)
[2018-11-18] MEDS: PRENATAL VITAMIN PO (11:01)
[2018-11-18] MEDS: ARTIFICIAL TEARS 15 ML OPH BOTH EYES ×3 (11:02→21:48)
[2018-11-18] MEDS: BALSAM PERU/CASTOR OIL 60 GM TUBE TOP ×2 (11:03→21:48)
[2018-11-18] MEDS: CEFEPIME 2GM/50 ML (PMX) 50 ML IVPB ×2 (11:04→21:47)
[2018-11-18] MEDS ORDERED: VANCOMYCIN 750 MG (PMX) 250 ML IVPB (14:00)
[2018-11-18] MEDS: VANCOMYCIN 750 MG (PMX) 250 ML IVPB (17:05)
[2018-11-18] MEDS: METHENAMINE 1 GM TAB NGT (21:48)
[2018-11-19] MEDS: ACETYLCYSTEINE 20% 4 ML VIAL NEB ×4 (01:41→20:22)
[2018-11-19] MEDS: LEVALBUTEROL (NEB) 0.63 MG/3 ML AMP HHN ×4 (01:41→20:22)
[2018-11-19] MEDS: SCOPOLAMINE 1.5 MG PATCH TRANSDERM (02:17)
[2018-11-19] MEDS: morphine 2 MG INJ IV ×2 (05:14→14:37)
[2018-11-19] MEDS: LANSOPRAZOLE 30 MG CAP GTB (06:07)
[2018-11-19] MEDS: FINASTERIDE 5 MG TAB GTB (09:55)
[2018-11-19] MEDS: METOPROLOL 25 MG TAB GTB (09:55)
[2018-11-19] MEDS: PRENATAL VITAMIN PO (09:55)
[2018-11-19] MEDS: METHENAMINE 1 GM TAB NGT ×2 (09:55→20:35)
[2018-11-19] MEDS: ZINC SULFATE 220 MG CAP GTB (09:55)
[2018-11-19] MEDS: ASCORBIC ACID 500 MG TAB GTB ×2 (09:55→20:35)
[2018-11-19] MEDS: CEFEPIME 2GM/50 ML (PMX) 50 ML IVPB ×2 (09:56→20:35)
[2018-11-19] MEDS: ARTIFICIAL TEARS 15 ML OPH BOTH EYES ×3 (09:56→20:35)
[2018-11-19] MEDS ORDERED: morphine 2 MG INJ IV (15:00)
[2018-11-19] MEDS: morphine (DRIP) 100 MG/100 ML 100 ML IV (16:09)
[2018-11-20] MEDS: LEVALBUTEROL (NEB) 0.63 MG/3 ML AMP HHN ×4 (01:34→20:03)
[2018-11-20] MEDS: ACETYLCYSTEINE 20% 4 ML VIAL NEB ×4 (01:34→20:04)
[2018-11-20] MEDS: LANSOPRAZOLE 30 MG CAP GTB (05:56)
[2018-11-20] MEDS: METHENAMINE 1 GM TAB NGT (09:35)
[2018-11-20] MEDS: ARTIFICIAL TEARS 15 ML OPH BOTH EYES ×3 (09:35→20:45)
[2018-11-20] MEDS: PRENATAL VITAMIN PO (09:36)
[2018-11-20] MEDS: ASCORBIC ACID 500 MG TAB GTB (09:36)
[2018-11-20] MEDS: ZINC SULFATE 220 MG CAP GTB (09:36)
[2018-11-20] MEDS: FINASTERIDE 5 MG TAB GTB (09:37)
[2018-11-21] MEDS: ACETYLCYSTEINE 20% 4 ML VIAL NEB ×2 (01:43→08:01)
[2018-11-21] MEDS: LEVALBUTEROL (NEB) 0.63 MG/3 ML AMP HHN ×2 (01:44→08:01)
[2018-11-21] MEDS: LANSOPRAZOLE 30 MG CAP GTB (06:00)
[2018-11-21] MEDS: ARTIFICIAL TEARS 15 ML OPH BOTH EYES ×2 (09:03→13:00)
[2018-11-21] MEDS: FINASTERIDE 5 MG TAB GTB (09:03)
[2018-11-21] MEDS ORDERED: morphine (DRIP) 100 MG/100 ML 100 ML IV (10:00)
== END 2018-11-21 13:35 | disposition expired | DRG 947 ==
LOC: ICU 11-06 11:07 → TEL 11-06 11:07 → ICU 11-06 11:07 → GIL 11:14 → TEL 17:07 → GIL 12:10 → TEL 18:45
PROC: 0DHA3UZ Insertion of Feeding Device into Jejunum, Percutaneous Approach (ICD-10-PCS; principal; 2018-11-03 11:30)
PROC: 30233N1 Transfusion of Nonautologous Red Blood Cells into Peripheral Vein, Percutaneous Approach (ICD-10-PCS; 2018-11-03 11:30)
PROC: 0W993ZX Drainage of Right Pleural Cavity, Percutaneous Approach, Diagnostic (ICD-10-PCS; 2018-11-03 11:30)
PROC: 0BH17EZ Insertion of Endotracheal Airway into Trachea, Via Natural or Artificial Opening (ICD-10-PCS; 2018-11-03 11:30)
PROC: 06HY33Z Insertion of Infusion Device into Lower Vein, Percutaneous Approach (ICD-10-PCS; 2018-11-03 11:30)
PROC: 30233K1 Transfusion of Nonautologous Frozen Plasma into Peripheral Vein, Percutaneous Approach (ICD-10-PCS; 2018-11-03 11:30)
PROC: 30233R1 Transfusion of Nonautologous Platelets into Peripheral Vein, Percutaneous Approach (ICD-10-PCS; 2018-11-03 11:30)
PROC: 0W9B3ZZ Drainage of Left Pleural Cavity, Percutaneous Approach (ICD-10-PCS; 2018-11-03 11:30)
PROC: 0W9B3ZZ Drainage of Left Pleural Cavity, Percutaneous Approach (ICD-10-PCS; 2018-11-03 11:30)
PROC: 0BH17EZ Insertion of Endotracheal Airway into Trachea, Via Natural or Artificial Opening (ICD-10-PCS; 2018-11-03 11:30)
PROC: 5A1955Z Respiratory Ventilation, Greater than 96 Consecutive Hours (ICD-10-PCS; 2018-11-03 11:30)
PROC: 0W9930Z Drainage of Right Pleural Cavity with Drainage Device, Percutaneous Approach (ICD-10-PCS; 2018-11-03 11:30)
DX: R64 Cachexia (principal); E43 Unspecified severe protein-calorie malnutrition; J96.02 Acute respiratory failure with hypercapnia; J96.01 Acute respiratory failure with hypoxia; J93.0 Spontaneous tension pneumothorax; J69.0 Pneumonitis due to inhalation of food and vomit; G93.41 Metabolic encephalopathy; J15.6 Pneumonia due to other Gram-negative bacteria; A41.9 Sepsis, unspecified organism; R65.21 Severe sepsis with septic shock; Z68.1 Body mass index [BMI] 19.9 or less, adult; D61.9 Aplastic anemia, unspecified; C79.51 Secondary malignant neoplasm of bone; J90 Pleural effusion, not elsewhere classified; E87.0 Hyperosmolality and hypernatremia; N39.0 Urinary tract infection, site not specified; D61.818 Other pancytopenia; J98.11 Atelectasis; I47.1 Supraventricular tachycardia; G93.40 Encephalopathy, unspecified; D68.9 Coagulation defect, unspecified; R13.10 Dysphagia, unspecified; C61 Malignant neoplasm of prostate; I11.0 Hypertensive heart disease with heart failure; I50.9 Heart failure, unspecified; E83.39 Other disorders of phosphorus metabolism; G30.9 Alzheimer's disease, unspecified; F02.80 Dementia in other diseases classified elsewhere, unspecified severity, without behavioral disturbance, psychotic disturbance, mood disturbance, and anxiety; D64.9 Anemia, unspecified; M62.81 Muscle weakness (generalized); I49.9 Cardiac arrhythmia, unspecified; M19.90 Unspecified osteoarthritis, unspecified site; E87.6 Hypokalemia; L89.151 Pressure ulcer of sacral region, stage 1; L89.621 Pressure ulcer of left heel, stage 1; L89.611 Pressure ulcer of right heel, stage 1; B96.5 Pseudomonas (aeruginosa) (mallei) (pseudomallei) as the cause of diseases classified elsewhere; Z66 Do not resuscitate
CPT/HCPCS: 31500; 32555; 36430; 36600; 71045; 71250; 76705; 76942; 80048; 80053; 80061; 81001; 82140; 82270; 82533; 82550; 82553; 82607; 82728; 82746; 82803; 82945; 82962; 83540; 83605; 83615; 83735; 84100; 84145; 84153; 84154; 84157; 84443; 84484; 85025; 85045; 85049; 85362; 85378; 85384; 85610; 85670; 85730; 86644; 86850; 86900; 86901; 86920; 87040-91; 87070; 87075; 87081; 87086; 87102; 87116; 88104; 88305; 89051; 89220; 93005; 93306; 94002; 94003; 94640; 94660; 94664; 94667; 94770